=== PATIENT | male | born 1945 | race Caucasian/White ===

== ENCOUNTER 2024-03-12 11:42 | Inpatient (IN) | payer OTHER, SELFPAY ==
[2024-03-10] VITALS (9 sets, daily range): BP systolic 105–157; BP diastolic 64–95; BMI 22.6
--- NOTE | 2024-03-10 15:03 | ED.GENMED ---
History of Present Illness
General
Chief Complaint: Weakness
Time Seen by Provider: 03/10/24 14:44
History of Present Illness
History of Present Illness:
78-year-old male history of hypertension presenting with frequent falls over the past 6 months. Patient states that he has been worsening over the past 3 weeks, has had 4 falls in the past week. Patient states that in October 2023, he was running
full-court refereeing. Patient states he has been unable to run secondary to frequent falls. Patient denies striking his head or loss of consciousness. Patient reports last week when he fell he landed on the toilet injuring his mid back. Patient
denies numbness, weakness, tingling, visual changes, incontinence, fever, chills, chest pain or shortness of breath. Patient states that he has a neurology appointment in 2 days. Patient states that he was on amlodipine for hypertension but
switched 3 weeks ago secondary to lower extremity edema to losartan. Patient states he feels off balance, falls when trying to take his shoes off while standing. Family at bedside states pt will be standing when it appears that his feet get 'stuck'
causing him to fall over. Pt denies any dizziness or lightheadedness. Pt not on blood thinners.
Phy Exam
Physical Exam
Physical Exam:
General: Alert, no acute distress
Head: NCAT
Eyes: clear conjunctiva, PERRLA, EOMI
Neck: supple
Cardiac: regular rate and rhythm, no murmur
Lungs: clear to auscultation bilaterally. No wheezes, rales, or rhonchi. Speaking full unlabored sentences. No respiratory distress.
Abdomen: soft, nondistended nontender. No rebound or guarding.
MSK: no lower extremity edema bilaterally. No deformity. No cervical or lumbar midline tenderness to palpation. Lower thoracic midline tenderness to palpation
Skin: warm, dry
Neuro: Alert and oriented x3. Cranial nerves II through XII grossly intact no focal deficits. Normal finger-nose and [id number]. 5 out of 5 strength bilateral upper and lower extremities. No pronator drift bilateral upper and lower
extremities. Sensation intact throughout
Course
Orders/Labs/Results
Orders:
Orders
03/10/24 15:01
CT Cervical Spine W/o Iv Contr Urgent
Comment:
Reason For Exam: fall
CT Head W/o Iv Contrast Urgent
Comment:
Reason For Exam: frequent falls
CT Thoracic Spine W/o Iv Contr Urgent
Comment:
Reason For Exam: lower thoracic midline tenderness s/p fall
03/10/24 15:02
EKG [Electrocardiogram (*1)] Urgent
Reason for Study: Other
Other Reason for Exam: falls
EKG- Treatment ONCE
03/10/24 15:12
CBC/With Diff [Complete Blood Count/With Diff] Urgent
CMP [Comprehensive Metabolic Panel] Urgent
Lipase Urgent
Comment: ADD ON
03/10/24 15:53
US Abdomen Complete/Upper Urgent
Comment:
Reason For Exam: elevated lfts
03/10/24 15:58
Add On- LAB Urgent
Tests Added?: Lipase
03/10/24 17:02
UA Reflex to Culture [Urinalysis Reflex To Culture] Urgent
Date Specimen was Collected: 03/10/24
Time Specimen was Collected: 16:13
Abnormal Lab Results
03/10/24
15:12
RBC 4.03 L 10^6/uL
(4.70-6.10)
MCV 98.5 H fL
(80.0-94.0)
MCH 32.5 H pg
(27.0-31.0)
Absolute Lymphs (auto) 1.1 L 10^3/uL
(1.2-3.4)
Absolute Monos (auto) 0.7 H 10^3/uL
(0.1-0.6)
Lymphocytes % 14.9 L %
(20.5-51.1)
BUN 36 H mg/dl
(9-20)
Glucose 173 H mg/dl
(70-99)
AST 131 H U/L
(17-59)
ALT 92 H U/L
(0-50)
03/10/24 15:12
03/10/24 15:12
Vital Signs
Initial and Last Documented VS:
Initial Vital Signs
Temp Pulse Resp Pulse Ox
97.7 F 64 18 98
03/10/24 12:29 03/10/24 12:29 03/10/24 12:29 03/10/24 12:29
Last Documented Vital Signs
Temp Pulse Resp BP Pulse Ox
97.7 F 53 12 120/76 97
03/10/24 12:29 03/10/24 19:00 03/10/24 19:00 03/10/24 19:00 03/10/24 19:00
MDM/Problems Addressed
Differential Diagnosis Includes:
Anemia, electrolyte abnormality, UTI, intracranial hemorrhage, Parkinson's, normal pressure hydrocephalus
MDM/Problems Addressed:
Results reviewed. Hemoglobin 13.1. UA negative for UTI. Elevated AST and ALT. Abdominal ultrasound unremarkable. CT cervical/thoracic spine unremarkable. CT head unremarkable for Multiple small low-attenuation lesions in the caudate nuclei,
basal ganglia, and left thalamus, no acute hemorrhage. Attempted to ambulate patient in ER. Pt unsteady gait and needs assistance, concern for fall risk. Pt lives at home alone. Discussed results with pt at bedside and daughters on the phone who are
agreeable for admission. Discussed with hospitalist for admission
*Critical Care Note
Total Time (30-74mins, 75-104mins- exclusive of procedures): Not Applicable
ED Attending Note
-
Portions of this chart may have been created with voice recognition software.� Occasional wrong word or��sound alike� substitutions may have occurred due to the inherent limitations of voice recognition software.
Discharge Plan
Departure
Patient Disposition: Admit
Date of Disposition: 03/10/24
Time of Disposition: 19:35
Presentation/result/management discussed w/ accepting MD/DO: Hospitalist
Discharge Problem:
Ambulatory dysfunction
Prescriptions:
No Action
ketoconazole 2 % Shampoo
1 applic TOPICAL DAILY
trazodone 50 mg Tablet
50 mg PO HSPRN PRN (Reason: sleep)
acetaminophen [Tylenol Arthritis Pain] 650 mg Tablet Extended Release
650 mg PO Q8HPRN PRN (Reason: mild pain)
tamsulosin 0.4 mg Capsule
0.4 mg PO HS
aspirin 81 mg Tablet,Chewable
81 mg PO HS
valsartan 160 mg Tablet
160 mg PO DAILY
Referrals:
Pb Thorne DO [Family Provider] -
Interventions
Interventions:
*Risk Screen - Suicide Last Done: 03/10/24 12:29
*General Assessment Last Done: 03/10/24 12:29
*Neglect/Abuse Screening Last Done: 03/10/24 12:29
*ED COVID-19 Vaccine History Last Done: 03/10/24 12:29
ED- Cardiac Assessment Last Done: 03/10/24 15:15
ED- Neurological Assessment Last Done: 03/10/24 15:15
ED- Pulmonary Assessment Last Done: 03/10/24 15:15
Discharge Date and Time
Print Language: TOGOLESE
[2024-03-10 15:30] LABS: % Basophils 0.4 % (0-2); % Eosinophils 3.2 % (0-6); % Immature Granulocytes 0.4 % (0-0.5); % Lymphocytes 14.9 % (20.5-51.1); % Monocytes 9.3 % (1.7-9.3); % Neutrophils 71.8 % (42.2-75.2); Absolute Eosinophils 0.2 10^3/uL (0-0.7); Absolute Lymphocytes 1.1 10^3/uL (1.2-3.4); Absolute Monocytes 0.7 10^3/uL (0.1-0.6); Absolute Neutrophils 5.4 10^3/uL (1.4-6.5); Hematocrit 39.7 % (39.0-52.0); Hemoglobin 13.1 g/dL (13.0-18.0); Mean Corpuscular Hgb 32.5 pg (27.0-31.0); Mean Corpuscular Volume 98.5 fL (80.0-94.0); Mean Platelet Volume 9.2 fL (7.4-10.4); Nucleated Red Blood Cells % 0 % (-); Platelet Count 177 10^3/uL (130-400); Red Blood Cell Count 4.03 10^6/uL (4.70-6.10); Red Cell Dist. Width 12.4 % (11.5-14.5); White Blood Cell Count 7.5 10^3/uL (4.8-10.8)
[2024-03-10 15:49] LABS: ALT (SGPT) 92 U/L (0-50); AST (SGOT) 131 U/L (17-59); Albumin 3.9 g/dl (3.5-5.0); Alkaline Phosphatase 77 U/L (38-126); Blood Urea Nitrogen 36 mg/dl (9-20); Calcium 9.2 mg/dl (8.4-10.2); Carbon Dioxide 29 mmol/L (22-30); Chloride 105 mmol/L (98-107); Glucose 173 mg/dl (70-99); Potassium 4.1 mmol/L (3.5-5.1); Sodium 139 mmol/L (135-145); Total Bilirubin 0.5 mg/dl (0.2-1.3); Total Protein 6.3 g/dl (6.3-8.2); eGFR > 60.00
[2024-03-10 16:47] LABS: Lipase 162 U/L (23-300)
[2024-03-10 17:21] LABS: Urine Albumin Negative (Neg - Trace); Urine Bilirubin Negative (Negative); Urine Character Clear (Clear); Urine Color Yellow; Urine Glucose Negative (Negative); Urine Ketone Negative (Negative); Urine Leukocyte Negative (Negative); Urine Nitrite Negative (Negative); Urine Occult Blood Negative (Negative); Urine Specific Gravity 1.025 (<1.030); Urine Urobilinogen Negative (Neg - 1+)
--- NOTE | 2024-03-10 19:38 | HPS.HSE ---
Family Physician
-
Family Physician: Pb Thorne
Chief Complaint
-
fall
History of Present Illness
78-year-old male with PMH for HTN, BPH presenting with frequent falls over the past three weeks. he is been feeling off balance for 6 months. his legs are weaker and just gives out on him. last he fell four times. Patient denies striking his head
or loss of consciousness. Patient reports last week when he fell he landed on the toilet injuring his mid back. Patient denies numbness, weakness, tingling, visual changes, incontinence, fever, chills, chest pain or shortness of breath. Pt denies
any dizziness or lightheadedness. denied abdominal pain,n,v,d. denied dysuria or hematuria. he has lost 10 lbs in few weeks.
Radiological tests were negative for acute fracture
head CT with Multiple small low-attenuation lesions in the caudate nuclei, basal ganglia, and left thalamus. Diagnostic possibilities are (1) ischemic lacunar infarcts or (2) dilated perivascular spaces
admitting for further management.
Medical History
Past Medical History
Past Medical History: Reports None
Past Surgical History: Reports None
Social History
Tobacco: Non-smoker
Alcohol: Occasional
Drug: None
Personal: Single
Living: Alone
Family History
Family History: Not pertinent
Allergies / Home Medications
Allergies reflects when Allergies were last updated in [facility].
Home Medications with original date entered in [facility]
Allergy/Medication List:
Allergies
Allergy/AdvReac Type Severity Reaction Status Date / Time
No Known Allergies Allergy Unverified 03/10/24 12:32
Home Medications
acetaminophen 650 mg tablet,extended release (Tylenol Arthritis Pain) 650 mg PO Q8HPRN PRN mild pain 03/10/24
aspirin 81 mg chewable tablet 81 mg PO HS 03/10/24
ketoconazole 2 % shampoo 1 applic topical DAILY 03/10/24
tamsulosin 0.4 mg capsule 0.4 mg PO HS 03/10/24
trazodone 50 mg tablet 50 mg PO HSPRN PRN sleep 03/10/24
valsartan 160 mg tablet 160 mg PO DAILY 03/10/24
Review of Systems
-
Constitutional: Reports No Symptoms
EENT: Reports No Symptoms
Respiratory: Reports No Symptoms
Cardiac: Reports No Symptoms
Abdomen/GI: Reports No Symptoms
: Reports No Symptoms
Musculoskeletal: Reports No Symptoms
Skin: Reports No Symptoms
Neurological: Reports Other (off balance, fall)
Endocrine: Reports No Symptoms
Hematologic/Lymphatic: Reports No Symptoms
Psych: Reports No Symptoms
Physical Exam
Vital Signs
Vital Signs
Temp Pulse Resp BP Pulse Ox
97.7 F 53 12 120/76 97
03/10/24 12:29 03/10/24 19:00 03/10/24 19:00 03/10/24 19:00 03/10/24 19:00
Physical Exam
General: Well Developed, Well Nourished and No Apparent Distress
HEENT: NormoCephalic, Moist mucous membranes and Atraumatic
Respiratory: Clear
Cardiac: S1/S2 and Regular Rhythm; No Murmur or Rub
GI: Soft, Non Tender, Non Distended and Normal Bowel Sounds; No Organomegaly
Rectal: Deferred by Provider
Musculoskeletal: No Clubbing, No Cyanosis and No Edema
Skin: No Rash
Neuro: AO x 3 and Nonfocal/grossly intact
Psych: Calm
Laboratory Results
-
03/10/24 15:12
03/10/24 15:12
Laboratory Results
Total Bilirubin 0.5 mg/dl (0.2-1.3) 03/10/24 15:12
AST 131 U/L (17-59) H 03/10/24 15:12
ALT 92 U/L (0-50) H 03/10/24 15:12
Alkaline Phosphatase 77 U/L (38-126) 03/10/24 15:12
Lipase Cancelled 03/10/24 15:53
Data Reviewed
-
CT Scan: Report Reviewed by me
Ultrasound: Report Reviewed by me
Lab Data: Labs Reviewed by me
Impression/Plan
-
#ambulatory dysfunction
-PT/OT consulted
-UA negative
-thoracic spine CT with No acute fracture or subluxation.
-head CT with Multiple small low-attenuation lesions in the caudate nuclei, basal ganglia, and left thalamus. Diagnostic possibilities are (1) ischemic lacunar infarcts or (2) dilated perivascular spaces. Mild diffuse cerebral and cerebellar volume
loss.No CT evidence for acute intracranial hemorrhage.
-cervical spine CT with No acute fracture or subluxation.
-will obtain MRI, orthostatics
-will obtain TSH, B12,ESR,RPR
#Bradycardia
-EKG with sinus niall with sinus arrhythmia with 1se degree A V Block, right bundle branch block.
-ctm in tele
-HR 50-60's
#transaminitis
-AST 131,ALT 92
-US abdomen with Essentially unremarkable limited abdominal ultrasound, as detailed above.
-continue to trend
#BPH
-Flomax
#essential htn
-valsartan continued with hold parameter
#DVT prophylaxis
-Lovenox
#CODE status
-full code
--- NOTE | 2024-03-10 20:06 | W.PN.UPDATE ---
Update Note
Progress Note Update
Patient seen in conjunction with PHOTOVOLTAIC PANEL INSTALLER. I agree with the final history and physical as well as assessment and plan.
Briefly this is a 78-year-old with past medical history significant for hypertension, BPH presenting to the emergency department with multiple recent falls. Patient denies any syncopal events. She denies feeling dizzy or lightheaded. He denies
vertigo. He denies any changes in his vision. He reports a history of intermittent ankle swelling and some numbness or tingling in the feet bilaterally. He denies any history of chronic back pain or back surgery. He denies incontinence of the
bowel or bladder. He denies any weakness. Sensation is otherwise intact. He denies any headache. Patient given example of a fall where he was walking down the street and he felt like something pulled him forward. This appears to be gait
abnormality. He has no recent cough cold flulike symptoms. He reports that his doctors have been adjusting his medications to balance is falls. He does lives at home by himself. Denies etoh.
On my exam he was alert and oriented x 3 and in no acute distress. No focal neurological deficits on exam
In the emergency department he was hemodynamically stable with a blood pressure of 120/76 pulse of 50 and oxygen saturation of 97%. ECG shows sinus bradycardia in the 50s with a right bundle branch block. No priors to compare. CBC was
unremarkable. BUN was elevated at 36 otherwise electrolytes and creatinine were normal. AST was slightly elevated at 131 ALT 92. UA was unremarkable. His CT head, C-spine and thoracic spine where unremarkable for any acute changes. Abdominal
ultrasound was negative. There was cerebellar and cerebral volume loss on the CT of the head with multiple small low-attenuation lesions in the caudate nuclei, basal ganglia, and left thalamus.
Suspect old ischemic CVA resulting in ataxia, NPH, tabes dorsalis or ambulatory dysfunction.
A&P
- admit to telemetry, eval rate x 24 hours
- orthostatic vs
- check mri brain, tsh, b12, esr and rpr
- PT OT evaluation
- continue aspirin 81, valsartan 160
- continue tamsulosin
DVT PPX - lovenox sq
Code status - Full Code
[2024-03-10] MEDS: LOW STRENGTH ASPIRIN 81 MG PO (23:02)
[2024-03-10] MEDS: FLOMAX 0.4 MG PO (23:03)
--- NOTE | 2024-03-10 23:20 | PTCARENOTE ---
Pt arrived to room 416-01. Pt did stand & pivot from stretcher to bed. Pt AAOx3, VSS. Bed alarm placed. Pt oriented to room, call lynn placed within reach.
[2024-03-11] VITALS (8 sets, daily range): BP systolic 105–154; BP diastolic 63–87; PULSE 52–76; O2SAT 98
[2024-03-11] MEDS: TYLENOL 650 MG PO (00:58)
[2024-03-11 08:47] LABS: Erythrocyte Sed Rate 16 mm/hour (0-20)
--- NOTE | 2024-03-11 08:49 | PTOTSP ---
Dysphagia Evaluation
Oral/pharyngeal swallow suspected to be grossly WFL. No s/s of aspiration.
Signs concerning for at least mild dysphonia (decreased breath support, low volume, hoarse vocal quality, vocal tremor), new for past 2 months per patient report. Consider outpatient ENT consult and outpatient [facility] for voice evaluation/therapy.
Recommend:
1. Regular, Thin liquids
2. Medications as best tolerated
3. General aspiration precautions
4. Will follow up to continue cognitive linguistic testing as able/appropriate.
5. Consider outpatient ENT consult and outpatient [facility] for voice evaluation/therapy.
[2024-03-11] MEDS: DIOVAN 160 MG PO (08:55)
[2024-03-11 08:57] LABS: TSH Reflex To Free T4 2.03 uIU/ml (0.47-4.68)
--- NOTE | 2024-03-11 09:12 | CON.NEURO ---
Consultation
Order
Date of Consultation: 03/11/24
Requesting Provider: Shana Velasco MD
Reason for Consult: ambulatory dysfunction
Neurology Consultation Note.
HPI: This is a 78-year-old left-handed man who presented to [facility] on 03/10/2024 with frequent falls. Mr. Calvert endorses progressive imbalance as well as generalized bradykinesia's along with micrographia over the last year.
He has had several falls with no loss of consciousness or head trauma over the last 6 months.
ER VS: 115/71, 64, afebrile.
EKG: normal sinus rhythm, VR 58, QTc Int : 433 ms
PDMP: none
Labs: Glucose�173, normal WBCs, sodium, creatinine, Ca, AST�131, ALT�92
CT head wo contrast-multiple small low-attenuation lesions in the caudate nuclei, basal ganglia, and left thalamus. D
CT C spine-mild to moderate multilevel degenerative disc disease, however worst at C4-5 and C5-6.
PMH: HTN, BPH
PSH: none
SH: lives with daughter, retired truck company owner manager, non-smoker, no history excessive alcohol use; independent in ADLs.
FH: Father�lung cancer,
All:NKDA
ROS:Constitutional: Negative. Negative for chills, fever and unexpected weight change.
HENT: Positive for hearing impairment.
Eyes: Negative. Negative for photophobia, pain and visual disturbance.
Respiratory: Negative for cough, choking and shortness of breath.
Cardiovascular: Negative for chest pain, palpitations and leg swelling.
Gastrointestinal: Positive for sialorrhea
Endocrine: Negative. Negative for cold intolerance.
Genitourinary: Positive for urinary urgency.
Musculoskeletal: Negative for back pain, neck pain and neck stiffness.
Skin: Negative for rash.
Allergic/Immunologic: Negative. Negative for immunocompromised state.
Neurological: Positive for imbalance, urge to move legs in the evening, change in handwriting, bradykinesia's
Psychiatric/Behavioral: Negative for hallucinations.
General: Well developed. In no acute distress. Masked facies
Cardio: Regular rate and rhythm without murmur. Extremities are without cyanosis or edema.
Neuro:
Mental Status: Alert, oriented to person, place, and date. Normal attention and recall. Good fund of knowledge. Follows complex requests across the midline. Comprehension, naming, and repetition intact.
Cranial Nerves: . Pupils are equally round and reactive to light. EOMs full except for limited upgaze. visual hicks full to confrontation. No ptosis. No nystagmus. V1-V3 intact to light touch and pinprick bilaterally, symmetric. Face
symmetric. Poor hearing AU. The palate elevated well. SCMs and traps 5/5. Tongue midline. No dysarthria.
Motor: Increased motor tone with cogwheeling on the right. No pronator or arm drift. Strength 5/5 throughout. No clonus.
Reflexes: Bilateral grasp. Limited exam due to positioning.
Sensory: Reduced vibration at the left great and right toes.
Coordination: No dysmetria or tremor.
Gait: deferred
Assessment and Plan:
I. R hemiparkinsonism Differential diagnosis includes secondary parkinsonism(vascular, structural (hydrocephalus, chronic subdural hematoma, tumor), metabolic(hypoparathyroidism and pseudohypoparathyroidism, chronic liver failure, extrapontine
myelinolysis) , neurodegenerative(IPD, CBD, LBD), less likely infections(neurosyphilis).
II. Bilateral basal ganglia hypodensities.
III. RLS
-Fall precautions
-Please obtain orthostatic vital signs
-Brain MRI wo trupti
-Check PTH, ferritin, iron, transferrin.
-Start Mirapex 0.125 mg once daily 2 to 3 hours before bedtime. Daily dose may be increased based on response and tolerability to 0.25 mg after 4 to 7 days.
-Avoid dopamine blocking agents
-OP Amelia scan to look for reduced dopamine transporter uptake in basal ganglia based on brain MRI results.
I personally reviewed all radiology and labs along with past medical records pertinent to current medical problems. Total time spent in patient care is 60 minutes.
Thank you for allowing us to participate in the care of this patient. We will continue to follow. Please do not hesitate to contact us with any questions or concerns.
Subjective/Objective
Subjective Data
Date of Service: March 11, 2024
Objective Data
Vital Signs
Temp Pulse Resp BP Pulse Ox
36.6 C 52 18 129/71 98
03/11/24 07:00 03/11/24 07:00 03/11/24 07:00 03/11/24 07:00 03/11/24 07:00
Lab Results
03/10/24 15:12
03/10/24 15:12
Sodium 139 mmol/L (135-145) 03/10/24 15:12
Potassium 4.1 mmol/L (3.5-5.1) 03/10/24 15:12
BUN 36 mg/dl (9-20) H 03/10/24 15:12
Glucose 173 mg/dl (70-99) H 03/10/24 15:12
Calcium 9.2 mg/dl (8.4-10.2) 03/10/24 15:12
Patient Allergies
No Known Allergies Allergy (Unverified 03/10/24 12:32)
Medications
-
Active Medications
Generic Name Dose Route Start Last Admin
Trade Name Freq PRN Reason Stop Dose Admin
Acetaminophen 650 mg 03/10/24 22:40 03/11/24 00:58
Acetaminophen 325 Mg Tablet PO 04/07/24 22:39 650 mg
Q4HPRN PRN Administration
mild pain/PIRES/temp> 100.4F
Aspirin 81 mg 03/10/24 22:40 03/10/24 23:02
Aspirin 81 Mg Chewable Tablet PO 04/07/24 22:39 81 mg
HS RUBY Administration
Bisacodyl 10 mg 03/10/24 22:40
Bisacodyl 10 Mg Rectal Suppository RECTAL 04/07/24 22:39
[id number] PRN
constipation
Enoxaparin Sodium 40 mg 03/11/24 18:00
Enoxaparin Sodium 40 Mg/0.4 Ml Syringe SC 04/08/24 17:59
QPM RUBY
Polyethylene Glycol 17 grams 03/10/24 22:40
Polyethylene Glycol Powder 17 Grams Packet PO 04/07/24 22:39
DAILYPRN PRN
constipation
Senna/Docusate Sodium 1 tablet 03/10/24 22:40
Docusate W/Senna (Joanne-Colace) Tablet PO 04/07/24 22:39
BIDPRN PRN
constipation
Sodium Chloride 0 flush 03/10/24 23:00
Sodium Chloride 0.9% (Flush) Syringe IV 04/07/24 22:59
PER PROTOCOL RUBY
Tamsulosin HCl 0.4 mg 03/10/24 22:40 03/10/24 23:03
Tamsulosin 0.4 Mg Capsule PO 04/07/24 22:39 0.4 mg
HS RUBY Administration
Trazodone HCl 50 mg 03/10/24 22:40
Trazodone 50 Mg Tablet PO 04/07/24 22:39
HSPRN PRN
sleep
Valsartan 160 mg 03/11/24 08:00 03/11/24 08:55
Valsartan 160 Mg Tablet PO 04/08/24 07:59 160 mg
DAILY RUBY Administration
Home Medications
�Medication �Instructions �Recorded
acetaminophen 650 mg 650 mg PO Q8HPRN PRN mild pain 03/10/24
tablet,extended release (Tylenol
Arthritis Pain)
aspirin 81 mg chewable tablet 81 mg PO HS 03/10/24
ketoconazole 2 % shampoo 1 applic topical DAILY 03/10/24
tamsulosin 0.4 mg capsule 0.4 mg PO HS 03/10/24
trazodone 50 mg tablet 50 mg PO HSPRN PRN sleep 03/10/24
valsartan 160 mg tablet 160 mg PO DAILY 03/10/24
Vital Signs and Labs
-
Vital Signs and Labs:
Vital Signs
Temp Pulse Resp BP Pulse Ox
36.4 C 70 18 115/68 98
03/11/24 11:00 03/11/24 11:00 03/11/24 11:00 03/11/24 11:00 03/11/24 11:00
Lab Results
03/10/24 15:12
03/10/24 15:12
Sodium 139 mmol/L (135-145) 03/10/24 15:12
Potassium 4.1 mmol/L (3.5-5.1) 03/10/24 15:12
BUN 36 mg/dl (9-20) H 03/10/24 15:12
Glucose 173 mg/dl (70-99) H 03/10/24 15:12
Calcium 9.2 mg/dl (8.4-10.2) 03/10/24 15:12
Vitamin B12 314 pg/ml (239-931) 03/11/24 06:34
Medications
-
Medications:
Generic Name Dose Route Start Last Admin
Trade Name Freq PRN Reason Stop Dose Admin
Acetaminophen 650 mg 03/10/24 22:40 03/11/24 00:58
Acetaminophen 325 Mg Tablet PO 04/07/24 22:39 650 mg
Q4HPRN PRN Administration
mild pain/PIRES/temp> 100.4F
Aspirin 81 mg 03/10/24 22:40 03/10/24 23:02
Aspirin 81 Mg Chewable Tablet PO 04/07/24 22:39 81 mg
HS RUBY Administration
Bisacodyl 10 mg 03/10/24 22:40
Bisacodyl 10 Mg Rectal Suppository RECTAL 04/07/24 22:39
[id number] PRN
constipation
Cyanocobalamin 1,000 mcg 03/11/24 13:00 03/11/24 12:38
Cyanocobalamin 1,000 Mcg Tablet PO 04/08/24 12:59 1,000 mcg
DAILY RUBY Administration
Enoxaparin Sodium 40 mg 03/11/24 18:00
Enoxaparin Sodium 40 Mg/0.4 Ml Syringe SC 04/08/24 17:59
QPM RUBY
Polyethylene Glycol 17 grams 03/10/24 22:40
Polyethylene Glycol Powder 17 Grams Packet PO 04/07/24 22:39
DAILYPRN PRN
constipation
Senna/Docusate Sodium 1 tablet 03/10/24 22:40
Docusate W/Senna (Joanne-Colace) Tablet PO 04/07/24 22:39
BIDPRN PRN
constipation
Sodium Chloride 0 flush 03/10/24 23:00
Sodium Chloride 0.9% (Flush) Syringe IV 04/07/24 22:59
PER PROTOCOL RUBY
Tamsulosin HCl 0.4 mg 03/10/24 22:40 03/10/24 23:03
Tamsulosin 0.4 Mg Capsule PO 04/07/24 22:39 0.4 mg
HS RUBY Administration
Trazodone HCl 50 mg 03/10/24 22:40
Trazodone 50 Mg Tablet PO 04/07/24 22:39
HSPRN PRN
sleep
Valsartan 160 mg 03/11/24 08:00 03/11/24 08:55
Valsartan 160 Mg Tablet PO 04/08/24 07:59 160 mg
DAILY RUBY Administration
Home Medications
-
Home Medications
acetaminophen 650 mg tablet,extended release (Tylenol Arthritis Pain) 650 mg PO Q8HPRN PRN mild pain 03/10/24
aspirin 81 mg chewable tablet 81 mg PO HS 03/10/24
ketoconazole 2 % shampoo 1 applic topical DAILY 03/10/24
tamsulosin 0.4 mg capsule 0.4 mg PO HS 03/10/24
trazodone 50 mg tablet 50 mg PO HSPRN PRN sleep 03/10/24
valsartan 160 mg tablet 160 mg PO DAILY 03/10/24
[2024-03-11 09:16] LABS: Vitamin B12 314 pg/ml (239-931)
--- NOTE | 2024-03-11 12:00 | W.PN.HOSP.TC ---
Today's Communication/Plan
-
see A/P
Assessment / Plan
Assessment / Plan
HPI: 78-year-old with past medical history significant for hypertension, BPH; p/w multiple recent falls. Patient denies any syncopal events. He denies feeling dizzy or lightheaded. He denies vertigo. He denies any changes in his vision.
He reports a history of intermittent ankle swelling and some numbness or tingling in the feet bilaterally. He denies any history of chronic back pain or back surgery. He denies incontinence of the bowel or bladder. He denies any weakness.
Sensation is otherwise intact. He denies any headache. Patient given example of a fall where he was walking down the street and he felt like something pulled him forward. This appears to be gait abnormality.
He reports that his doctors have been adjusting his medications to balance his falls. He does lives at home by himself. Denies etoh.
A/P:
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
hemodynamically stable
CT head noted Multiple small low-attenuation lesions in the caudate nuclei, basal ganglia, and left thalamus. Diagnostic possibilities are (1) ischemic lacunar infarcts or (2) dilated perivascular spaces.
CT cervical and thoracic spine: No acute fracture or subluxation.
Check MRI brain
Orthostatic VS acceptable
UA clean, TSH WNL at 2.03
Vit B 12 level noted low at 300, start B12 supplement
RPR was ordered from admission, follow up
No event on tele overnight
PT OT evaluation
# Transaminitis, mild
Abd US unremarkable
Follow LFT
Follow hepatitis panel
# Bradycardia
EKG with sinus niall with sinus arrhythmia with 1se degree A V Block, right bundle branch block.
Monitor on telel
# BPH
Flomax
# Essential HTN
Cont valsartan with hold parameter
DVT PPX - lovenox sq
Code status - Full Code
DW Neuro
DW daughter Khushi on the phone
total time spent 51 min
Anticipated Discharge: 24 - 48 hours
Subjective/Interval History
-
Date of Service: March 11, 2024
Objective Data
-
Vital Signs:
Vital Signs
Temp Pulse Resp BP Pulse Ox
36.4 C 70 18 115/68 98
03/11/24 11:00 03/11/24 11:00 03/11/24 11:00 03/11/24 11:00 03/11/24 11:00
I&O
03/10/24 03/11/24 03/12/24
06:59 06:59 06:59
Intake Total 480 / 480
Output Total 300 / 300
Balance 180 / 180
Review of Systems
-
Musculoskeletal: Reports Other (frequent falls )
Physical Exam
-
General: Well Developed, Well Nourished, No Apparent Distress, Comfortable and Conversant (slow speech); Negative Respiratory Distress
HEENT: Normocephalic, Atraumatic, Nose Appears Normal and Ears Appear Normal; Negative Oxygen
Respiratory: Clear to Auscultation and Non Labored Respirations; Negative Accessory Resp Muscle Use
Cardiac: Regular Rhythm and S1/S2
GI: Soft, Nontender, Nondistended and Normal Bowel Sounds
Skin: Warm and Dry
Neuro: Awake, Alert, Oriented and Other (flattened facial expression, slow movement )
Psych: Calm and Intact Judgement/Insight
Data Reviewed
-
CT Scan: Report Reviewed by me
Labs: Labs Reviewed by me
[2024-03-11] MEDS: VITAMIN B-12 1000 MCG PO (12:38)
--- NOTE | 2024-03-11 13:33 | CM ---
Addendum entered by Maria M Souza 03/11/24 13:43:
CM discussed grief counseling as pt informed of recent loss of his . Pt states he has been managing and will let CM know if he is interested in additional support at d/c.
Pt currently admitted in OBS status. DARNELL form reviewed, pt given copy. Copy placed in chart
Original Note:
Spoke w/ pt bedside. Initial assessment completed.
Pt lives alone in a 2STH- 2 steps to enter the home. Pt's recently 3 months ago after 40+ years of marriage.
Pt is independent, denies DME use for ambulating or daily functioning
Denies SNF/VN/PT hx
Address, point of contact and insurances verified
PCP: Dr. Pb Thorne
Pharmacy: [facility]
Discussed in person w/ PT regarding needs for rehab. Pt is being recommended for acute rehab at this time
PT states pt appears unaware of his deficits and his previous falls. Per PT, pt wants to return coaching basketball and is unsure if he'll agree to rehab.
CM to further discuss w/ pt and follow up w/ daughter.
Plan: PT/OT currently recommending acute rehab
CM will cont to follow for d/c planning
[2024-03-11] MEDS: MIRAPEX 0.125 MG PO (14:20)
[2024-03-11 14:50] LABS: Calcium 9.4 mg/dl (8.4-10.2); Iron 47 ug/dl (49-181)
[2024-03-11 14:59] LABS: Percent Saturation 21 % (20-50); Total Iron Binding Capacity 217 ug/dl (261-462)
[2024-03-11 15:27] LABS: Vitamin B12 291 pg/ml (239-931)
[2024-03-11] MEDS: LOVENOX 40 MG SC (17:07)
[2024-03-11] MEDS: LOW STRENGTH ASPIRIN 81 MG PO (23:10)
[2024-03-11] MEDS: DESYREL 50 MG PO (23:10)
[2024-03-11] MEDS: FLOMAX 0.4 MG PO (23:10)
[2024-03-12 03:30] VITALS: BP 119/66
[2024-03-12 07:00] VITALS: BP 125/70
[2024-03-12] MEDS: VITAMIN B-12 1000 MCG PO (08:05)
[2024-03-12] MEDS: DIOVAN 160 MG PO (08:05)
[2024-03-12] MEDS: MIRAPEX 0.125 MG PO (08:05)
[2024-03-12 08:07] LABS: ALT (SGPT) 100 U/L (0-50); AST (SGOT) 92 U/L (17-59); Albumin 3.8 g/dl (3.5-5.0); Alkaline Phosphatase 79 U/L (38-126); Blood Urea Nitrogen 28 mg/dl (9-20); Calcium 9.5 mg/dl (8.4-10.2); Carbon Dioxide 26 mmol/L (22-30); Chloride 105 mmol/L (98-107); Estimated Creatinine Clearance 76 ml/min; Glucose 105 mg/dl (70-99); Magnesium 2.2 mg/dl (1.6-2.3); Potassium 4.5 mmol/L (3.5-5.1); Sodium 138 mmol/L (135-145); Total Bilirubin 1.1 mg/dl (0.2-1.3); Total Protein 6.4 g/dl (6.3-8.2); eGFR > 60.00
--- NOTE | 2024-03-12 10:40 | W.PN.HOSP.TC ---
Today's Communication/Plan
-
see A/P
Assessment / Plan
Assessment / Plan
HPI: 78-year-old with past medical history significant for hypertension, BPH; p/w multiple recent falls. Patient denies any syncopal events. He denies feeling dizzy or lightheaded. He denies vertigo. He denies any changes in his vision.
He reports a history of intermittent ankle swelling and some numbness or tingling in the feet bilaterally. He denies any history of chronic back pain or back surgery. He denies incontinence of the bowel or bladder. He denies any weakness.
Sensation is otherwise intact. He denies any headache. Patient given example of a fall where he was walking down the street and he felt like something pulled him forward. This appears to be gait abnormality.
He reports that his doctors have been adjusting his medications to balance his falls. He does lives at home by himself. Denies etoh.
A/P:
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
hemodynamically stable
CT head noted Multiple small low-attenuation lesions in the caudate nuclei, basal ganglia, and left thalamus. Diagnostic possibilities are (1) ischemic lacunar infarcts or (2) dilated perivascular spaces.
CT cervical and thoracic spine: No acute fracture or subluxation.
Follow MRI brain
Orthostatic VS acceptable
UA clean, TSH WNL at 2.03
Vit B 12 level noted low at 300, started B12 supplement
RPR was ordered from admission, follow up
No event on tele overnight
PT OT evaluation
# Transaminitis, mild
Abd US unremarkable
Follow LFT
Follow hepatitis panel
# Bradycardia
EKG with sinus niall with sinus arrhythmia with 1se degree A V Block, right bundle branch block.
Monitor on telel
# BPH
Flomax
# Essential HTN
Cont valsartan with hold parameter
DVT PPX - lovenox sq
Code status - Full Code
Dispo: PT OT eval
Anticipated Discharge: 24 - 48 hours
Subjective/Interval History
-
Date of Service: March 12, 2024
Objective Data
-
Labs:
Laboratory Results
03/12/24
06:37
Sodium 138
Potassium 4.5
Chloride 105
Carbon Dioxide 26
BUN 28 H
Creatinine 0.8
Glucose 105 H
Calcium 9.5
Total Bilirubin 1.1
AST 92 H
ALT 100 H
Alkaline Phosphatase 79
Vital Signs:
Vital Signs
Temp Pulse Resp BP Pulse Ox
36.2 C 64 18 125/70 98
03/12/24 07:00 03/12/24 07:00 03/12/24 07:00 03/12/24 07:00 03/12/24 07:00
I&O
03/11/24 03/12/24 03/13/24
06:59 06:59 06:59
Intake Total 480 / 480 760 / 760
Output Total 300 / 300 600 / 600
Balance 180 / 180 160 / 160
Review of Systems
-
Musculoskeletal: Reports Other (frequent falls )
Physical Exam
-
General: Well Developed, Well Nourished, No Apparent Distress, Comfortable, Conversant (slow soft speech) and Appears Chronically Ill; Negative Respiratory Distress
HEENT: Normocephalic, Atraumatic, Nose Appears Normal and Ears Appear Normal; Negative Oxygen
Respiratory: Clear to Auscultation and Non Labored Respirations; Negative Accessory Resp Muscle Use
Cardiac: Regular Rhythm and S1/S2
GI: Soft, Nontender, Nondistended and Normal Bowel Sounds
Skin: Warm and Dry
Neuro: Awake, Alert, Oriented and Other (flattened facial expression, slow movement )
Psych: Calm and Intact Judgement/Insight
Data Reviewed
-
CT Scan: Report Reviewed by me
Labs: Labs Reviewed by me
[2024-03-12 11:00] VITALS: BP 99/53
[2024-03-12] MEDS: NSS 500 IV ×2 (11:13→14:06)
--- NOTE | 2024-03-12 11:49 | PTOTSP ---
LEAD SOFTWARE TEST ENGINEER Evaluation
Patient with at least mild dysphonia. Cognitive screener abnormal (03/30, adjusted MOCA 8.1) and concerning for deficits with attention, memory, abstraction, and orientation. Possible factors impacting included recent low blood pressure.
Continued assessment at the acute care level.
Recommend:
1. Acute LEAD SOFTWARE TEST ENGINEER follow up for further repeat cognitive linguistic testing.
2. Outpatient ENT consult and voice evaluation with LEAD SOFTWARE TEST ENGINEER
--- NOTE | 2024-03-12 12:39 | W.PN.NEURO.1 ---
Today's Communication / Plan
-
.
Subjective/Objective
Subjective Data
Date of Service: March 12, 2024
Neurology Follow Up Note.
Mr. Calvert reports significant improvement in urge to move his legs in the evening following Mirapex initiation.
Brain MRI showed no acute infarcts and chronic multiple basal ganglia Virchow-Cole spaces.
Ferritin�271, B12�291.
PMH: HTN, BPH, parkinsonism
PSH: none
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
FH: Father�lung cancer,
All:NKDA
ROS:Constitutional: Negative. Negative for chills, fever and unexpected weight change.
HENT: Positive for hearing impairment.
Eyes: Negative. Negative for photophobia, pain and visual disturbance.
Respiratory: Negative for cough, choking and shortness of breath.
Cardiovascular: Negative for chest pain, palpitations and leg swelling.
Gastrointestinal: Positive for sialorrhea
Endocrine: Negative. Negative for cold intolerance.
Genitourinary: Positive for urinary urgency.
Musculoskeletal: Negative for back pain, neck pain and neck stiffness.
Skin: Negative for rash.
Allergic/Immunologic: Negative. Negative for immunocompromised state.
Neurological: Positive for imbalance, urge to move legs in the evening, change in handwriting, bradykinesia's
Psychiatric/Behavioral: Negative for hallucinations.
General: Well developed. In no acute distress. Masked facies
Cardio: Regular rate and rhythm without murmur. Extremities are without cyanosis or edema.
Neuro:
Mental Status: Alert, oriented to person, place, and date. Normal attention and recall. Good fund of knowledge. Follows complex requests across the midline. Comprehension, naming, and repetition intact.
Cranial Nerves: . Pupils are equally round and reactive to light. EOMs full except for limited upgaze. visual hicks full to confrontation. No ptosis. No nystagmus. V1-V3 intact to light touch and pinprick bilaterally, symmetric. Face
symmetric. Poor hearing AU. The palate elevated well. SCMs and traps 5/5. Tongue midline. No dysarthria.
Motor: Increased motor tone with cogwheeling on the right. No pronator or arm drift. Strength 5/5 throughout. No clonus.
Reflexes: Bilateral grasp. Limited exam due to positioning.
Sensory: Reduced vibration at the left great and right toes.
Coordination: No dysmetria or tremor.
Gait: deferred
Assessment and Plan:
I. R hemiparkinsonism
II. Bilateral basal ganglia Virchow-Cole spaces
III. RLS.
-Fall precautions
-Continue Mirapex 0.125 mg once daily 2 to 3 hours before bedtime. Daily dose may be increased based on tolerability to 0.25 mg after 4 to 7 days.
-Avoid dopamine blocking agents
-OP Amelia scan
-PT
-folate, MMA, HC, start PO cyanocobalamin
-OP neurology follow up in 1-2 weeks
I personally reviewed all radiology and labs along with past medical records pertinent to current medical problems. Total time spent in patient care is 35 minutes.
Thank you for allowing us to participate in the care of this patient. Please do not hesitate to contact us with any questions or concerns
Objective Data
Vital Signs
Temp Pulse Resp BP Pulse Ox
36.4 C 63 18 99/53 98
03/12/24 11:00 03/12/24 11:00 03/12/24 11:00 03/12/24 11:00 03/12/24 11:00
Lab Results
03/10/24 15:12
03/12/24 06:37
Sodium 138 mmol/L (135-145) 03/12/24 06:37
Potassium 4.5 mmol/L (3.5-5.1) 03/12/24 06:37
BUN 28 mg/dl (9-20) H 03/12/24 06:37
Glucose 105 mg/dl (70-99) H 03/12/24 06:37
Calcium 9.5 mg/dl (8.4-10.2) 03/12/24 06:37
Vitamin B12 291 pg/ml (026-429) 03/11/24 13:53
Patient Allergies
No Known Allergies Allergy (Unverified 03/10/24 12:32)
Vital Signs and Labs
-
Vital Signs and Labs:
Vital Signs
Temp Pulse Resp BP Pulse Ox
36.4 C 63 18 99/53 98
03/12/24 11:00 03/12/24 11:00 03/12/24 11:00 03/12/24 11:00 03/12/24 11:00
Lab Results
03/10/24 15:12
03/12/24 06:37
Sodium 138 mmol/L (135-145) 03/12/24 06:37
Potassium 4.5 mmol/L (3.5-5.1) 03/12/24 06:37
BUN 28 mg/dl (9-20) H 03/12/24 06:37
Glucose 105 mg/dl (70-99) H 03/12/24 06:37
Calcium 9.5 mg/dl (8.4-10.2) 03/12/24 06:37
Vitamin B12 291 pg/ml (260-752) 03/11/24 13:53
Medications
-
Medications:
Generic Name Dose Route Start Last Admin
Trade Name Freq PRN Reason Stop Dose Admin
Acetaminophen 650 mg 03/10/24 22:40 03/11/24 00:58
Acetaminophen 325 Mg Tablet PO 04/07/24 22:39 650 mg
Q4HPRN PRN Administration
mild pain/PIRES/temp> 100.4F
Aspirin 81 mg 03/10/24 22:40 12/11/24 23:10
Aspirin 81 Mg Chewable Tablet PO 04/07/24 22:39 81 mg
HS RUBY Administration
Bisacodyl 10 mg 03/10/24 22:40
Bisacodyl 10 Mg Rectal Suppository RECTAL 04/07/24 22:39
[id number] PRN
constipation
Cyanocobalamin 1,000 mcg 03/11/24 13:00 03/12/24 08:05
Cyanocobalamin 1,000 Mcg Tablet PO 04/08/24 12:59 1,000 mcg
DAILY RUBY Administration
Enoxaparin Sodium 40 mg 03/11/24 18:00 03/11/24 17:07
Enoxaparin Sodium 40 Mg/0.4 Ml Syringe SC 04/08/24 17:59 40 mg
QPM RUBY Administration
Polyethylene Glycol 17 grams 03/10/24 22:40
Polyethylene Glycol Powder 17 Grams Packet PO 04/07/24 22:39
DAILYPRN PRN
constipation
Pramipexole Dihydrochloride 0.125 mg 03/11/24 14:00 03/12/24 08:05
Pramipexole 0.125 Mg Tablet PO 04/08/24 13:59 0.125 mg
DAILY RUBY Administration
Senna/Docusate Sodium 1 tablet 03/10/24 22:40
Docusate W/Senna (Joanne-Colace) Tablet PO 04/07/24 22:39
BIDPRN PRN
constipation
Sodium Chloride 0 flush 03/10/24 23:00
Sodium Chloride 0.9% (Flush) Syringe IV 04/07/24 22:59
PER PROTOCOL RUBY
Tamsulosin HCl 0.4 mg 03/10/24 22:40 03/11/24 23:10
Tamsulosin 0.4 Mg Capsule PO 04/07/24 22:39 0.4 mg
HS RUBY Administration
Trazodone HCl 50 mg 03/10/24 22:40 03/11/24 23:10
Trazodone 50 Mg Tablet PO 04/07/24 22:39 50 mg
HSPRN PRN Administration
sleep
Valsartan 160 mg 03/11/24 08:00 03/12/24 08:05
Valsartan 160 Mg Tablet PO 04/08/24 07:59 160 mg
DAILY RUBY Administration
Home Medications
-
Home Medications
acetaminophen 650 mg tablet,extended release (Tylenol Arthritis Pain) 650 mg PO Q8HPRN PRN mild pain 03/10/24
aspirin 81 mg chewable tablet 81 mg PO HS 03/10/24
ketoconazole 2 % shampoo 1 applic topical DAILY 03/10/24
tamsulosin 0.4 mg capsule 0.4 mg PO HS 03/10/24
trazodone 50 mg tablet 50 mg PO HSPRN PRN sleep 03/10/24
valsartan 160 mg tablet 160 mg PO DAILY 03/10/24
[2024-03-12 14:47] LABS: Folate 15.8 ng/ml (2.76-20)
[2024-03-12 15:00] VITALS: BP 131/72; BP 134/75; BP 135/64; PULSE 65; PULSE 68; PULSE 71
--- NOTE | 2024-03-12 16:37 | PTCARENOTE ---
Pt with low BP at lunch time 88/53. Dr Velasco was present on floor and ordered 5oo cc saline bolus. BP still 88/53 another bolus of 500 cc saline and BP improved 130/68.
[2024-03-12] MEDS: LOVENOX 40 MG SC (17:04)
[2024-03-12 19:30] VITALS: BP 114/58; BP 122/59; BP 129/64; PULSE 66; PULSE 70; PULSE 77
[2024-03-12 19:35] LABS: Hepatitis B Surface Antigen Negative (Negative)
[2024-03-12 19:53] LABS: Hepatitis A Antibody, Total Negative (Negative); Hepatitis B Surface Antibody Negative; Hepatitis C Antibody Negative (Negative)
[2024-03-12] MEDS: LOW STRENGTH ASPIRIN 81 MG PO (19:58)
[2024-03-12] MEDS: DESYREL 50 MG PO (23:00)
[2024-03-12 23:34] VITALS: BP 118/60
[2024-03-13] VITALS (9 sets, daily range): BP systolic 93–161; BP diastolic 57–80; PULSE 59–73
[2024-03-13] MEDS: VITAMIN B-12 1000 MCG PO (08:03)
--- NOTE | 2024-03-13 08:49 | W.PN.HOSP.TC ---
Today's Communication/Plan
-
see A/P
Assessment / Plan
Assessment / Plan
HPI: 78-year-old with past medical history significant for hypertension, BPH; p/w multiple recent falls. Patient denies any syncopal events. He denies feeling dizzy or lightheaded. He denies vertigo. He denies any changes in his vision.
He reports a history of intermittent ankle swelling and some numbness or tingling in the feet bilaterally. He denies any history of chronic back pain or back surgery. He denies incontinence of the bowel or bladder. He denies any weakness.
Sensation is otherwise intact. He denies any headache. Patient given example of a fall where he was walking down the street and he felt like something pulled him forward. This appears to be gait abnormality.
He reports that his doctors have been adjusting his medications to balance his falls. He does lives at home by himself. Denies etoh.
A/P:
# Frequent falls, suspect 2/2 Parkinson's disease vs Parkinsonism
hemodynamically stable
CT head noted Multiple small low-attenuation lesions in the caudate nuclei, basal ganglia, and left thalamus. Diagnostic possibilities are (1) ischemic lacunar infarcts or (2) dilated perivascular spaces.
CT cervical and thoracic spine: No acute fracture or subluxation.
MRI brain confirmed numerous small brains lesions, favoring prominent perivascular spaces over multiple small old lacunar infarcts
Orthostatic VS from admission acceptable
UA clean, TSH WNL at 2.03
Vit B 12 level noted low at 300, started B12 supplement
RPR was ordered from admission, can follow up
Mirapex was started which resulted in severe hypotension, stopped further
PT OT recc acute, PMR consulted
# Transaminitis, mild
Abd US unremarkable
Follow LFT
hepatitis panel negative
# Bradycardia
EKG with sinus niall with sinus arrhythmia with 1se degree A V Block, right bundle branch block.
tele
# BPH
Flomax
# Essential HTN
resume Valsartan at decreased dose 80 mg daily 03/14 with hold parameter
DVT PPX - lovenox sq
Code status - Full Code
Dispo: PT OT recc acute, PMR consulted
DW RN
updated daughter on the phone
total time spent 51 min
Anticipated Discharge: > 48 hours
Subjective/Interval History
-
Date of Service: March 13, 2024
Objective Data
-
Labs:
Laboratory Results
03/13/24
08:32
Sodium Pending
Potassium Pending
Chloride Pending
Carbon Dioxide Pending
BUN Pending
Creatinine Pending
Glucose Pending
Calcium Pending
Total Bilirubin Pending
AST Pending
ALT Pending
Alkaline Phosphatase Pending
Vital Signs:
Vital Signs
Temp Pulse Resp BP Pulse Ox
36.6 C 61 18 136/73 99
03/13/24 07:32 03/13/24 07:32 03/13/24 07:32 03/13/24 07:32 03/13/24 07:32
I&O
03/12/24 03/13/24 03/14/24
06:59 06:59 06:59
Intake Total 760 / 760 1480 / 1480
Output Total 600 / 600 1175 / 1175
Balance 160 / 160 305 / 305
Review of Systems
-
Musculoskeletal: Reports Other (frequent falls )
Physical Exam
-
General: Well Developed, Well Nourished, No Apparent Distress, Comfortable, Conversant (slow soft speech) and Appears Chronically Ill; Negative Respiratory Distress
HEENT: Normocephalic, Atraumatic, Nose Appears Normal and Ears Appear Normal; Negative Oxygen
Respiratory: Clear to Auscultation and Non Labored Respirations; Negative Accessory Resp Muscle Use
Cardiac: Regular Rhythm and S1/S2
GI: Soft, Nontender, Nondistended and Normal Bowel Sounds
Skin: Warm and Dry
Neuro: Awake, Alert, Oriented and Other (flattened facial expression, slow movement )
Psych: Calm and Intact Judgement/Insight
Data Reviewed
-
CT Scan: Report Reviewed by me
MRI: Report Reviewed by me
Labs: Labs Reviewed by me
[2024-03-13 09:19] LABS: ALT (SGPT) 89 U/L (0-50); AST (SGOT) 63 U/L (17-59); Albumin 3.8 g/dl (3.5-5.0); Alkaline Phosphatase 76 U/L (38-126); Blood Urea Nitrogen 23 mg/dl (9-20); Calcium 9.4 mg/dl (8.4-10.2); Carbon Dioxide 33 mmol/L (22-30); Chloride 102 mmol/L (98-107); Estimated Creatinine Clearance 76 ml/min; Glucose 112 mg/dl (70-99); Potassium 4.4 mmol/L (3.5-5.1); Sodium 139 mmol/L (135-145); Total Protein 6.5 g/dl (6.3-8.2); eGFR > 60.00
[2024-03-13] MEDS: NSS 250 IV (09:45)
--- NOTE | 2024-03-13 10:02 | CM ---
Patient seen at bedside. Physician indicated that she had sent referral to [facility], awaiting response. CM will update [facility] and continue to follow for discharge planning needs.
Plan; Acute Rehab
[2024-03-13 16:24] LABS: Syphilis/T. pallidum Ab Reflex Negative (Negative)
[2024-03-13] MEDS: LOVENOX SC (16:32)
--- NOTE | 2024-03-13 17:25 | CON.MD ---
Addendum entered and electronically signed by Javier Serrano MD 03/13/24 18:06:
Could be orthostatic as well, check daily. Monitor for supine HTN and BP drop when standing.
Original Note:
Documented by User: Desiree Dhillon PA-C 03/13/24 17:45
Consultation - Medical
-
Referring Provider:�Rose Cook
Chief Complaint:�Ambulatory dysfunction
�
History of Present Illness:�Patient is a 78-year-old male with PMH of ( hypertension, BPH) presenting with frequent falls over the past 6 months. Per patient, it feels like his feet get stuck sometimes, although at times he cannot slow down. He
feels off balance, falls when trying to take his shoes off while standing. States that he was on amlodipine for hypertension but switched 3 weeks ago to losartan secondary to lower extremity edema . Denies numbness, weakness, tingling, visual
changes, incontinence, fever, chills, chest pain or shortness of breath. Pt denies any dizziness or lightheadedness. denied abdominal pain,n,v,d. denied dysuria or hematuria. he has lost 10 lbs in few weeks.
Head CT with Multiple small low-attenuation lesions in the caudate nuclei, basal ganglia, and left thalamus. Diagnostic possibilities are (1) ischemic lacunar infarcts or (2) dilated perivascular spaces.
MRI of Brain: Numerous small foci of CSF signal intensity as described, corresponding to findings seen on CT scan. Differential considerations of multiple small old lacunar infarcts versus prominent perivascular spaces. Radiologist slightly favor
prominent perivascular spaces.Mild diffuse atrophy in this 78-year-old patient. Mild to moderate T2 and FLAIR white matter hyperintensities, commonly seen with aging and usually attributed to small vessel ischemic disease.
Per neurology:Mr. Calvert reports significant improvement in urge to move his legs in the evening following Mirapex initiation. Mirapex was started which resulted in severe hypotension, no further doses. hemodynamically stable. RPR-ordered.
Homocysteine - pending, Methylmalonic acid - pending. UA clean, TSH WNL at 2.03
Past Medical History:� hypertension, BPH
Procedure History:�Denies
Family History:�cancer
�
Social History:�
Functional Level Premorbidly:�Independent with all activities�
Functional Level Currently:�Transfer�min assist, ambulating with rolling walker 130 feet with min assist, Grooming, lower extremity self-care�min assist, toilet transfer�mod assist,
�
Tobacco:�Denies�
Alcohol:�Occasional
Drug use:�Denies�
�
Lives with:�Alone, past 3 months. Daughter cooks meals and help with laundry. Has a cane but does not use
24-hour assistance available:�
Number of floors: Multilevel
steps to enter:�3
# steps to second Floor: FF
Potential First floor set up:�
Driving:�No
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
�
�
Allergies:�
Allergy/AdvReac Type Severity Reaction Status Date / Time
No Known Allergies Allergy Unverified 03/10/24 12:32
�
Review of Systems:�
Constitutional: (x) Normal _
Eye: (x) Normal _
Ear/Nose/Throat: (x) abNormal _hearing impairment
Respiratory: (x) Normal _
Cardiovascular: (x) abNormal _ bradycardia
Gastrointestinal: (x) Normal _
Genitourinary: (x) abNormal _Flomax 0.4mg
Musculoskeletal: (x) abNormal _slow movement, falls
Integumentary: (x) Normal _
Neurologic: (x) abNormal _ dysphonia, Positive for imbalance, urge to move legs in the evening, change in handwriting, bradykinesia's
Psychiatric: (x) Normal _
Endocrine: (x) Normal _
Hematologic/Lymphatic: (x) Normal _
Allergic/Immunologic: (x) Normal _
�
Medications:�
Active Current Visit Medication List
Category Date Time Status
Acetaminophen [Tylenol] Med 03/10/24 22:40 Active
650 mg PO Q4HPRN PRN
Aspirin Chewable [Low Strength Aspirin] Med 03/10/24 22:40 Active
81 mg PO HS
Bisacodyl [Dulcolax] Med 03/10/24 22:40 Active
10 mg RECTAL [id number] PRN
Cyanocobalamin [Vitamin B-12] Med 03/13/24 08:00 Active
1,000 mcg PO DAILY
Docusate W/Senna [Senokot-S] Med 03/10/24 22:40 Active
1 tablet PO BIDPRN PRN
Enoxaparin Sodium [Lovenox] Med 03/11/24 18:00 Active
40 mg SC QPM
Flush (0.9% Sodium Chloride) [Flush (Nss)] Med 03/10/24 23:00 Active
See Dose Instructions IV PER PROTOCOL
Polyethylene Glycol Powder [Miralax] Med 03/10/24 22:40 Active
17 grams PO DAILYPRN PRN
Tamsulosin [Flomax] Med 03/10/24 22:40 Hold
0.4 mg PO HS
Trazodone [Desyrel] Med 03/10/24 22:40 Active
50 mg PO HSPRN PRN
Valsartan [Diovan] Med 03/11/24 08:00 Hold
160 mg PO DAILY
Valsartan [Diovan] Med 03/14/24 08:00 Active
80 mg PO DAILY
�
Vitals:�
Temp Pulse Resp BP Pulse Ox
98.3 F 59 20 93/61 97
03/13/24 15:28 03/13/24 15:28 03/13/24 15:28 03/13/24 15:28 03/13/24 15:28
Height 5 ft 10 in
Actual Weight 71.441 kg
Body Mass Index (BMI) 22.6
�
Physical Exam:�
General Appearance/Observation: Well-developed, well-nourished individual in no apparent distress.�
Pain/Comfort Assessment: Denies�
Mood/Affect: Appropriate,
�
Integumentary/Operative Site:�
�� Pressure Ulcer Evaluation: absent over heels.�
��
�� Other Type of Wound: absent�
�
Eyes: Conjunctiva/Lids: normal���� Pupils: pupils equal round and reactive to light and Accommodation�
Ears/Nose/Throat: oral mucosa moist,� throat clear.������������ Lips/Teeth/Gums: normal�
Neck: No muscle spasm or tenderness�
Cardiovascular: Heart: regular, no murmur�
Pulses: dorsalis pedis 2+ bilaterally�
Respiratory: Respiratory Effort/Chest Expansion: normal������� Auscultation: Clear to auscultation bilaterally�
Gastrointestinal: abdomen not tender, no distension, normal abdominal bowel sounds
Genitourinary: No Wallace�
Extremities:�Edema: None�Cyanosis: None�Trophic�changes: yes and reddish brownish discoloration, scab- side of right knee
�
Neurology Exam:
Orientation: Alert, Oriented to self, Time, Place�
Memory: Intact for immediate medical concerns
Comprehension: Intact
Two step command: needs repeating and cueing
Naming: Intact
Cranial Nerves:
�� CNII:�Pupillary light reflex: Intact����Visual Field: Intact
�� CN III, IV, : Extraocular muscles: Intact�
�� CN V:�Facial Sensation�at�Forehead: Intact,�Maxilla: Intact,�Mandible: Intact
�� CN VII:�Facial movement: Symmetric
�� CN VIII:�Hearing: some impairment
�� CN IX/X:�Speech & swallow: low, soft�Position of Uvula: Midline
�� CN XI:�Shoulder shrug: weakness, discrepancy in shoulder height- on the left side, right clavicular bone more prominent on the right
�� CN XII:�Tongue protrusion: Midline
Sensory:
�� Light touch: Intact in bilateral upper and lower extremities
��
�
Reflexes:
�� Biceps: 2+ bilaterally
�� Brachioradialis: 2+ bilaterally
�� Triceps: 2+ bilaterally
�� Patellar: 3+ bilaterally
�� Achilles: 2+ bilaterally
�� Babinski: Down going bilaterally
�� Clonus: none
�� Elvira: Negative bilaterally�
Cerebellar: Dysmetria/Ataxia: None�
Musculoskeletal:
Motor: (Manual muscle scale 0-5)�
Muscle SA EF WE EE FF FA HF KE DF EHL PF
Right� 5 5 5 5 5 5 5 4 5 4 5
Left 4 5 5 5 5 5 5 4 5 4 5
�Slow transitioning from sitting to standing. Off balance and tends to lean forward then posteriorly with short walk in the room.
Tone:
Range of Motion: Passively within normal limits in all extremities�
�
Lab Results
Labs
WBC 7.5 10^3/uL (4.8-10.8) 03/10/24 15:12
RBC 4.03 10^6/uL (4.70-6.10) L 03/10/24 15:12
Hgb 13.1 g/dL (13.0-18.0) 03/10/24 15:12
Hct 39.7 % (39.0-52.0) 03/10/24 15:12
MCV 98.5 fL (80.0-94.0) H 03/10/24 15:12
MCH 32.5 pg (27.0-31.0) H 03/10/24 15:12
MCHC 33.0 g/dL (33.0-37.0) 03/10/24 15:12
RDW 12.4 % (11.5-14.5) 03/10/24 15:12
Plt Count 177 10^3/uL (130-400) 03/10/24 15:12
MPV 9.2 fL (7.4-10.4) 03/10/24 15:12
Abs Immat Gran (auto) 0.0 10^3/uL (0-0.05) 03/10/24 15:12
Absolute Neuts (auto) 5.4 10^3/uL (1.4-6.5) 03/10/24 15:12
Absolute Lymphs (auto) 1.1 10^3/uL (1.2-3.4) L 03/10/24 15:12
Absolute Monos (auto) 0.7 10^3/uL (0.1-0.6) H 03/10/24 15:12
Absolute Eos (auto) 0.2 10^3/uL (0-0.7) 03/10/24 15:12
Absolute Basos (auto) 0.0 10^3/uL (0-0.2) 03/10/24 15:12
Immature Gran % 0.4 % (0-0.5) 03/10/24 15:12
Neutrophils % 71.8 % (42.2-75.2) 03/10/24 15:12
Lymphocytes % 14.9 % (20.5-51.1) L 03/10/24 15:12
Monocytes % 9.3 % (1.7-9.3) 03/10/24 15:12
Eosinophils % 3.2 % (0-6) 03/10/24 15:12
Basophils % 0.4 % (0-2) 03/10/24 15:12
Nucleated RBC % 0 % (-) 03/10/24 15:12
ESR 16 mm/hour (0-20) 03/11/24 06:34
Sodium 139 mmol/L (135-145) 03/13/24 08:32
Potassium 4.4 mmol/L (3.5-5.1) 03/13/24 08:32
Chloride 102 mmol/L (98-107) 03/13/24 08:32
Carbon Dioxide 33 mmol/L (22-30) H 03/13/24 08:32
BUN 23 mg/dl (9-20) H 03/13/24 08:32
Creatinine 0.8 mg/dL (0.7-1.3) 03/13/24 08:32
Estimated Creat Clear 76 ml/min 03/13/24 08:32
eGFR > 60.00 03/13/24 08:32
Glucose 112 mg/dl (70-99) H 03/13/24 08:32
Calcium 9.4 mg/dl (8.4-10.2) 03/13/24 08:32
Magnesium 2.2 mg/dl (1.6-2.3) 03/12/24 06:37
Iron 47 ug/dl (49-181) L 03/11/24 13:53
TIBC 217 ug/dl (261-462) L 03/11/24 13:53
% Saturation 21 % (20-50) 03/11/24 13:53
Ferritin 271.0 ng/ml (17.9-464.0) 03/11/24 13:53
Total Bilirubin 1.0 mg/dl (0.2-1.3) 03/13/24 08:32
AST 63 U/L (17-59) H 03/13/24 08:32
ALT 89 U/L (0-50) H 03/13/24 08:32
Alkaline Phosphatase 76 U/L (38-126) 03/13/24 08:32
Total Protein 6.5 g/dl (6.3-8.2) 03/13/24 08:32
Albumin 3.8 g/dl (3.5-5.0) 03/13/24 08:32
Lipase Cancelled 03/10/24 15:53
Vitamin B12 291 pg/ml (239-931) 03/11/24 13:53
Folate 15.8 ng/ml (2.76-20) 03/12/24 13:04
TSH (Reflex) 2.03 uIU/ml (0.47-4.68) 03/11/24 06:34
Urine Color Yellow 03/10/24 17:02
Urine Clarity Clear (Clear) 03/10/24 17:02
Urine pH 6.0 (5.0-9.0) 03/10/24 17:02
Ur Specific [place] 1.025 (<1.030) 03/10/24 17:02
Urine Ketones Negative (Negative) 03/10/24 17:02
Ur Occult Blood Reflex Negative (Negative) 03/10/24 17:02
Urine Nitrite (Reflex) Negative (Negative) 03/10/24 17:02
Urine Bilirubin Negative (Negative) 03/10/24 17:02
Urine Urobilinogen Negative (Neg - 1+) 03/10/24 17:02
Leukocyte Esterase Rfl Negative (Negative) 03/10/24 17:02
Urine Glucose Negative (Negative) 03/10/24 17:02
Urine Albumin (Reflex) Negative (Neg - Trace) 03/10/24 17:02
Hepatitis A Ab Total Negative (Negative) 03/11/24 06:34
Hep Bs Antigen Negative (Negative) 03/11/24 06:34
Hep Bs Antibody Negative 03/11/24 06:34
Hepatitis C Antibody Negative (Negative) 03/11/24 06:34
�
Diagnostic Results:�as per HPI�
�
Assessment: Patient is a 78-year-old male with PMH of ( hypertension, BPH) presenting with frequent falls over the past 6 months, bradykinesia, gait dysfunction with MRI findings of Multiple small low-attenuation lesions in the caudate nuclei,
basal ganglia, and left thalamus. Diagnostic possibilities are (1) ischemic lacunar infarcts or (2) dilated perivascular spaces with neurology favoring the latter.
�
Plan�
PM&R�PT/OT to increase independence with ADLs, improve balance, coordination, endurance, strength, mobility, community reintegration, decreased burden of care on others and family education.�
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 Mirapex was started which resulted in severe hypotension, stopped further doses. hemodynamically stable. RPR-ordered. MRI of brain-numerous
small brains lesions, favoring prominent perivascular spaces. UA clean, TSH WNL at 2.03. CT cervical and thoracic spine: No acute fracture or subluxation.
Transaminitis, mild: Abd US unremarkable. Follow LFT. hepatitis panel negative
Bradycardia: EKG with sinus niall with sinus arrhythmia with 1st degree A V Block, right bundle branch block. Telemetry
HTN: Valsartan decreased dose 80 mg daily start 03/14 with hold parameter-per neurology. Currently on 160mg qd
Anemia: Likely multifactorial.� Continue to monitor.�
Psych: Psychology consult.� Monitor mood, Trazodone 50mg prn
Skin: monitor for pressure sores/rashes/lesions.�
Pain: acetaminophen as needed.�
Bowel: Colace and Senna, PRN bisacodyl.�
Bladder/BPH: Time void, PVRs, PRN straight cath.�Tamsulosin 0.4mg
GI Prophylaxis: Pantoprazole�
DVT Prophylaxis: Lovenox
Pulmonary: Incentive spirometry�
Safety: Continue to reinforce assistance with all transfers.�
Code Status:� Full code
Dispo�(date/plan/equipment needs): Home with family care.� Social history reviewed.�
�
Functional and Medical Goals:�Modified Independent with ADL�s, ambulation, transfers�
�
Discharge Destination:�Acute inpatient rehab
�
Summary of recommendations: Patient with gait dysfunction and frequent falls suspected from parkinsonism vs Parkinson Disease would benefit from acute inpatient rehabilitation. Would Appreciate neuro input regarding treatment options. Any
contraindication to trial of Sinemet? prior to discharge
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 Mirapex was started which resulted in severe hypotension, stopped further doses. hemodynamically stable. RPR-ordered. MRI of brain-numerous
small brains lesions, favoring prominent perivascular spaces. UA clean, TSH WNL at 2.03. CT cervical and thoracic spine: No acute fracture or subluxation. OP Amelia scan. OP neurology follow up in 1-2 weeks
HTN: Valsartan decreased dose 80 mg daily start 03/14 with hold parameter-per neurology. Currently on 160mg qd.
DVT Prophylaxis: Lovenox
Pulmonary: Incentive spirometry��
Bradycardia: EKG with sinus niall with sinus arrhythmia with 1st degree A V Block, right bundle branch block. Telemetry.
Bowel: Colace and Senna, PRN bisacodyl.�
Bladder/BPH: Time void, PVRs, PRN straight cath.�Tamsulosin 0.4mg
�
Thank you for allowing me to care for your patient. Please contact me with any questions or concerns.

Documented by User: Javier Serrano MD 03/13/24 18:00
Consultation - Medical
-
Referring Provider:�Rose Cook
Chief Complaint:�Ambulatory dysfunction
�
History of Present Illness:�Patient is a 78-year-old right-handed male with PMH (hypertension, BPH) presenting with frequent falls over the past 6 months. Per patient, it feels like his feet get stuck sometimes, although at times he cannot slow
down. He feels off balance, falls when trying to take his shoes off while standing. States that he was on amlodipine for hypertension but switched 3 weeks ago to losartan secondary to lower extremity edema . Denies numbness, weakness, tingling,
visual changes, incontinence, fever, chills, chest pain or shortness of breath. Pt denies any dizziness or lightheadedness. denied abdominal pain,n,v,d. denied dysuria or hematuria. he has lost 10 lbs in few weeks.
Head CT with Multiple small low-attenuation lesions in the caudate nuclei, basal ganglia, and left thalamus. Diagnostic possibilities are (1) ischemic lacunar infarcts or (2) dilated perivascular spaces.
MRI of Brain: Numerous small foci of CSF signal intensity as described, corresponding to findings seen on CT scan. Differential considerations of multiple small old lacunar infarcts versus prominent perivascular spaces. Radiologist slightly favor
prominent perivascular spaces.Mild diffuse atrophy in this 78-year-old patient. Mild to moderate T2 and FLAIR white matter hyperintensities, commonly seen with aging and usually attributed to small vessel ischemic disease.
Per neurology:Mr. Calvert reports significant improvement in urge to move his legs in the evening following Mirapex initiation. Mirapex was started which resulted in severe hypotension, no further doses. hemodynamically stable. RPR-ordered.
Homocysteine - pending, Methylmalonic acid - pending. UA clean, TSH WNL at 2.03
Past Medical History:� hypertension, BPH
Procedure History:�Denies
Family History:�cancer
�
Social History:�
Functional Level Premorbidly:�Independent with all activities�
Functional Level Currently:�Transfer�min assist, ambulating with rolling walker 130 feet with min assist, Grooming, lower extremity self-care�min assist, toilet transfer�mod assist,
�
Tobacco:�Denies�
Alcohol:�Occasional
Drug use:�Denies�
�
Lives with:�Alone, past 3 months. Daughter cooks meals and help with laundry. Has a cane but does not use
24-hour assistance available:�No
Number of floors: Multilevel
steps to enter:�3
# steps to second Floor: FF
Potential First floor set up:�Possibly
Driving:�No
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
�
�
Allergies:�
Allergy/AdvReac Type Severity Reaction Status Date / Time
No Known Allergies Allergy Unverified 03/10/24 12:32
�
Review of Systems:�
Constitutional: (x) abNormal _fatigue, decreased appetite, recent weight loss. No fevers or chills. Still has good appetite.
Eye: (x) Normal _
Ear/Nose/Throat: (x) abNormal _hearing impairment
Respiratory: (x) Normal _
Cardiovascular: (x) abNormal _ bradycardia
Gastrointestinal: (x) Normal _
Genitourinary: (x) abNormal _Flomax 0.4mg
Musculoskeletal: (x) abNormal _slow movement, frequent falls
Integumentary: (x) Normal _
Neurologic: (x) abNormal _ dysphonia, Positive for imbalance, urge to move legs in the evening, change in handwriting, trouble getting started with walking. Walking and then speeding up faster until he falls
Psychiatric: (x) Normal _
Endocrine: (x) Normal _
Hematologic/Lymphatic: (x) Normal _
Allergic/Immunologic: (x) Normal _
�
Medications:�
Active Current Visit Medication List
Category Date Time Status
Acetaminophen [Tylenol] Med 03/10/24 22:40 Active
650 mg PO Q4HPRN PRN
Aspirin Chewable [Low Strength Aspirin] Med 03/10/24 22:40 Active
81 mg PO HS
Bisacodyl [Dulcolax] Med 03/10/24 22:40 Active
10 mg RECTAL [id number] PRN
Cyanocobalamin [Vitamin B-12] Med 03/13/24 08:00 Active
1,000 mcg PO DAILY
Docusate W/Senna [Senokot-S] Med 03/10/24 22:40 Active
1 tablet PO BIDPRN PRN
Enoxaparin Sodium [Lovenox] Med 03/11/24 18:00 Active
40 mg SC QPM
Flush (0.9% Sodium Chloride) [Flush (Nss)] Med 03/10/24 23:00 Active
See Dose Instructions IV PER PROTOCOL
Polyethylene Glycol Powder [Miralax] Med 03/10/24 22:40 Active
17 grams PO DAILYPRN PRN
Tamsulosin [Flomax] Med 03/10/24 22:40 Hold
0.4 mg PO HS
Trazodone [Desyrel] Med 03/10/24 22:40 Active
50 mg PO HSPRN PRN
Valsartan [Diovan] Med 03/11/24 08:00 Hold
160 mg PO DAILY
Valsartan [Diovan] Med 03/14/24 08:00 Active
80 mg PO DAILY
�
Vitals:�
Temp Pulse Resp BP Pulse Ox
98.3 F 59 20 93/61 97
03/13/24 15:28 03/13/24 15:28 03/13/24 15:28 03/13/24 15:28 03/13/24 15:28
Height 5 ft 10 in
Actual Weight 71.441 kg
Body Mass Index (BMI) 22.6
�
Physical Exam:�
General Appearance/Observation: Well-developed, well-nourished male in no apparent distress.�
Pain/Comfort Assessment: Denies�
Mood/Affect: Appropriate
�
Integumentary/Operative Site:��� Pressure Ulcer Evaluation: absent over heels.�
�
Eyes: Conjunctiva/Lids: normal���� Pupils: pupils equal round and reactive to light and Accommodation�
Ears/Nose/Throat: oral mucosa moist,� throat clear.������������ Lips/Teeth/Gums: normal�
Neck: No muscle spasm or tenderness�
Cardiovascular: Heart: regular, no murmur�
Pulses: dorsalis pedis 2+ bilaterally�
Respiratory: Respiratory Effort/Chest Expansion: normal������� Auscultation: Clear to auscultation bilaterally�
Gastrointestinal: abdomen not tender, no distension, normal abdominal bowel sounds
Genitourinary: No Wallace�
Extremities:�Edema: None�Cyanosis: None�Trophic�changes: yes and reddish brownish discoloration, scab-lateral right knee
�
Neurology Exam:
Orientation: Alert, Oriented to self, Time, Place�
Memory: Intact for immediate medical concerns
Comprehension: Intact
Two step command: needs repeating and cueing
Naming: Intact
Cranial Nerves: Resting tremor
�� CNII:�Pupillary light reflex: Intact����Visual Field: Intact
�� CN III, IV, : Extraocular muscles: Intact�
�� CN V:�Facial Sensation�at�Forehead: Intact,�Maxilla: Intact,�Mandible: Intact
�� CN VII:�Facial movement: Symmetric
�� CN VIII:�Hearing: some impairment
�� CN IX/X:�Speech & swallow: low, soft�Position of Uvula: Midline
�� CN XI:�Shoulder shrug: weakness, discrepancy in shoulder height- on the left side, right clavicular bone more prominent on the right
�� CN XII:�Tongue protrusion: Midline
Sensory:
�� Light touch: Intact in bilateral upper and lower extremities
�� �
Reflexes:
�� Biceps: 2+ bilaterally
�� Brachioradialis: 2+ bilaterally
�� Triceps: 2+ bilaterally
�� Patellar: 3+ bilaterally
�� Achilles: 2+ bilaterally
�� Babinski: Down going bilaterally
�� Clonus: none
�� Elvira: Negative bilaterally�
Cerebellar: Dysmetria/Ataxia: None�
Musculoskeletal: Motor: (Manual muscle scale 0-5)�
Muscle SA EF WE EE FF FA HF KE DF EHL PF
Right� 4 5 5 5 5 4 4 5 4 5
Left 3+ 5 5 5 5 4 4 5 4 5
�Slow transitioning from sitting to standing. Off balance and tends to lean forward then posteriorly with short walk in the room.
Tone:
Range of Motion: Passively within normal limits in all extremities�
�
Lab Results
Labs
WBC 7.5 10^3/uL (4.8-10.8) 03/10/24 15:12
RBC 4.03 10^6/uL (4.70-6.10) L 03/10/24 15:12
Hgb 13.1 g/dL (13.0-18.0) 03/10/24 15:12
Hct 39.7 % (39.0-52.0) 03/10/24 15:12
MCV 98.5 fL (80.0-94.0) H 03/10/24 15:12
MCH 32.5 pg (27.0-31.0) H 03/10/24 15:12
MCHC 33.0 g/dL (33.0-37.0) 03/10/24 15:12
RDW 12.4 % (11.5-14.5) 03/10/24 15:12
Plt Count 177 10^3/uL (130-400) 03/10/24 15:12
MPV 9.2 fL (7.4-10.4) 03/10/24 15:12
Abs Immat Gran (auto) 0.0 10^3/uL (0-0.05) 03/10/24 15:12
Absolute Neuts (auto) 5.4 10^3/uL (1.4-6.5) 03/10/24 15:12
Absolute Lymphs (auto) 1.1 10^3/uL (1.2-3.4) L 03/10/24 15:12
Absolute Monos (auto) 0.7 10^3/uL (0.1-0.6) H 03/10/24 15:12
Absolute Eos (auto) 0.2 10^3/uL (0-0.7) 03/10/24 15:12
Absolute Basos (auto) 0.0 10^3/uL (0-0.2) 03/10/24 15:12
Immature Gran % 0.4 % (0-0.5) 03/10/24 15:12
Neutrophils % 71.8 % (42.2-75.2) 03/10/24 15:12
Lymphocytes % 14.9 % (20.5-51.1) L 03/10/24 15:12
Monocytes % 9.3 % (1.7-9.3) 03/10/24 15:12
Eosinophils % 3.2 % (0-6) 03/10/24 15:12
Basophils % 0.4 % (0-2) 03/10/24 15:12
Nucleated RBC % 0 % (-) 03/10/24 15:12
ESR 16 mm/hour (0-20) 03/11/24 06:34
Sodium 139 mmol/L (135-145) 03/13/24 08:32
Potassium 4.4 mmol/L (3.5-5.1) 03/13/24 08:32
Chloride 102 mmol/L (98-107) 03/13/24 08:32
Carbon Dioxide 33 mmol/L (22-30) H 03/13/24 08:32
BUN 23 mg/dl (9-20) H 03/13/24 08:32
Creatinine 0.8 mg/dL (0.7-1.3) 03/13/24 08:32
Estimated Creat Clear 76 ml/min 03/13/24 08:32
eGFR > 60.00 03/13/24 08:32
Glucose 112 mg/dl (70-99) H 03/13/24 08:32
Calcium 9.4 mg/dl (8.4-10.2) 03/13/24 08:32
Magnesium 2.2 mg/dl (1.6-2.3) 03/12/24 06:37
Iron 47 ug/dl (49-181) L 03/11/24 13:53
TIBC 217 ug/dl (261-462) L 03/11/24 13:53
% Saturation 21 % (20-50) 03/11/24 13:53
Ferritin 271.0 ng/ml (17.9-464.0) 03/11/24 13:53
Total Bilirubin 1.0 mg/dl (0.2-1.3) 03/13/24 08:32
AST 63 U/L (17-59) H 03/13/24 08:32
ALT 89 U/L (0-50) H 03/13/24 08:32
Alkaline Phosphatase 76 U/L (38-126) 03/13/24 08:32
Total Protein 6.5 g/dl (6.3-8.2) 03/13/24 08:32
Albumin 3.8 g/dl (3.5-5.0) 03/13/24 08:32
Lipase Cancelled 03/10/24 15:53
Vitamin B12 291 pg/ml (239-931) 03/11/24 13:53
Folate 15.8 ng/ml (2.76-20) 03/12/24 13:04
TSH (Reflex) 2.03 uIU/ml (0.47-4.68) 03/11/24 06:34
Urine Color Yellow 03/10/24 17:02
Urine Clarity Clear (Clear) 03/10/24 17:02
Urine pH 6.0 (5.0-9.0) 03/10/24 17:02
Ur Specific [place] 1.025 (<1.030) 03/10/24 17:02
Urine Ketones Negative (Negative) 03/10/24 17:02
Ur Occult Blood Reflex Negative (Negative) 03/10/24 17:02
Urine Nitrite (Reflex) Negative (Negative) 03/10/24 17:02
Urine Bilirubin Negative (Negative) 03/10/24 17:02
Urine Urobilinogen Negative (Neg - 1+) 03/10/24 17:02
Leukocyte Esterase Rfl Negative (Negative) 03/10/24 17:02
Urine Glucose Negative (Negative) 03/10/24 17:02
Urine Albumin (Reflex) Negative (Neg - Trace) 03/10/24 17:02
Hepatitis A Ab Total Negative (Negative) 03/11/24 06:34
Hep Bs Antigen Negative (Negative) 03/11/24 06:34
Hep Bs Antibody Negative 03/11/24 06:34
Hepatitis C Antibody Negative (Negative) 03/11/24 06:34
�
Diagnostic Results:�as per HPI�
�
Assessment:
78-year-old male with PMH of ( hypertension, BPH) presenting with frequent falls over the past 6 months, bradykinesia, gait dysfunction with MRI findings of Multiple small low-attenuation lesions in the caudate nuclei, basal ganglia, and left
thalamus. Diagnostic possibilities are (1) ischemic lacunar infarcts or (2) dilated perivascular spaces with neurology favoring the latter.
�
Plan�
PM&R�PT/OT to increase independence with ADLs, improve balance, coordination, endurance, strength, mobility, community reintegration, decreased burden of care on others and family education.�
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 Mirapex was started which resulted in severe hypotension, stopped further doses. hemodynamically stable. RPR-ordered. MRI of brain-numerous
small brains lesions, favoring prominent perivascular spaces. UA clean, TSH WNL at 2.03. CT cervical and thoracic spine: No acute fracture or subluxation.
Transaminitis, mild: Abd US unremarkable. Follow LFT. hepatitis panel negative
Bradycardia: EKG with sinus niall with sinus arrhythmia with 1st degree A V Block, right bundle branch block. Telemetry
HTN: Valsartan decreased dose 80 mg daily start 03/14 with hold parameter-per neurology. Currently on 160mg qd
-Patient with systolic blood pressure in the 180-190 range per discussion with nursing. Would avoid taking blood pressure machines as they can be falsely elevated sometimes for your 50 points higher. Would check blood pressures manually only.
Anemia: Likely multifactorial.� Continue to monitor.�
Psych: Psychology consult.� Monitor mood, Trazodone 50mg prn
Skin: monitor for pressure sores/rashes/lesions.�
Pain: acetaminophen as needed.�
Bowel: Colace and Senna, PRN bisacodyl.�
Bladder/BPH: Time void, PVRs, PRN straight cath.�Tamsulosin 0.4mg
GI Prophylaxis: Pantoprazole�
DVT Prophylaxis: Lovenox
Pulmonary: Incentive spirometry�
Safety: Continue to reinforce assistance with all transfers.�
Code Status:� Full code
Dispo�(date/plan/equipment needs): Home with family care.� Social history reviewed.�
Functional and Medical Goals:�Modified Independent with ADL�s, ambulation, transfers�
Discharge Destination:�Acute inpatient rehab
Attending Statement:
I saw and examined the patient today. Reviewed care plan with patient, therapy, nursing, and physician hospital aides and assistants teacher. I agree with the above subjective and physical exam, and plan as documented by ARTIE Dhillon with adjustments made as necessary.
�
Summary of recommendations: Patient with gait dysfunction and frequent falls suspected from parkinsonism vs Parkinson Disease would benefit from acute inpatient rehabilitation. Would Appreciate neuro input regarding treatment options. Any
contraindication to trial of Sinemet? prior to discharge
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 Mirapex was started which resulted in severe hypotension, stopped further doses. hemodynamically stable. RPR-ordered. MRI of brain-numerous
small brains lesions, favoring prominent perivascular spaces. UA clean, TSH WNL at 2.03. CT cervical and thoracic spine: No acute fracture or subluxation. OP Amelia scan. OP neurology follow up in 1-2 weeks
HTN: Valsartan decreased dose 80 mg daily start 03/14 with hold parameter-per neurology. Currently on 160mg qd
-Patient with systolic blood pressure in the 180-190 range per discussion with nursing. Would avoid taking blood pressure machines as they can be falsely elevated sometimes for your 50 points higher. Would check blood pressures manually only.
Bradycardia: EKG with sinus niall with sinus arrhythmia with 1st degree A V Block, right bundle branch block. Telemetry.
Bowel: Colace and Senna, PRN bisacodyl.�
Bladder/BPH: Time void, PVRs, PRN straight cath.�Tamsulosin 0.4 mg
�
Thank you for allowing me to care for your patient. Please contact me with any questions or concerns.
[2024-03-13] MEDS: LOW STRENGTH ASPIRIN 81 MG PO (21:49)
[2024-03-13] MEDS: DESYREL 50 MG PO (21:49)
[2024-03-14 01:11] LABS: Transferrin 165 mg/dL (200-360)
[2024-03-14] MEDS: TYLENOL 650 MG PO (02:57)
[2024-03-14 02:59] VITALS: BP 123/84
[2024-03-14 07:00] VITALS: BP 130/80
[2024-03-14 08:00] VITALS: BP 127/78; BP 130/80; BP 134/77; PULSE 58; PULSE 63; PULSE 64
[2024-03-14 08:27] LABS: ALT (SGPT) 65 U/L (0-50); AST (SGOT) 47 U/L (17-59); Albumin 3.4 g/dl (3.5-5.0); Alkaline Phosphatase 71 U/L (38-126); Blood Urea Nitrogen 26 mg/dl (9-20); Carbon Dioxide 27 mmol/L (22-30); Chloride 103 mmol/L (98-107); Estimated Creatinine Clearance 67 ml/min; Glucose 86 mg/dl (70-99); Potassium 4.5 mmol/L (3.5-5.1); Sodium 134 mmol/L (135-145); Total Bilirubin 1.1 mg/dl (0.2-1.3); Total Protein 5.9 g/dl (6.3-8.2); eGFR > 60.00
[2024-03-14] MEDS: VITAMIN B-12 1000 MCG PO (08:33)
[2024-03-14] MEDS: LOVENOX SC (08:33)
[2024-03-14 08:58] LABS: Intact PTH 35.5 pg/ml (13.6-85.8)
--- NOTE | 2024-03-14 09:44 | W.PN.HOSP.TC ---
Today's Communication/Plan
-
see A/P
Assessment / Plan
Assessment / Plan
HPI: 78-year-old with past medical history significant for hypertension, BPH; p/w multiple recent falls. Patient denies any syncopal events. He denies feeling dizzy or lightheaded. He denies vertigo. He denies any changes in his vision.
He reports a history of intermittent ankle swelling and some numbness or tingling in the feet bilaterally. He denies any history of chronic back pain or back surgery. He denies incontinence of the bowel or bladder. He denies any weakness.
Sensation is otherwise intact. He denies any headache. Patient given example of a fall where he was walking down the street and he felt like something pulled him forward. This appears to be gait abnormality.
He reports that his doctors have been adjusting his medications to balance his falls. He does lives at home by himself. Denies etoh.
A/P:
# Frequent falls, suspect 2/2 Parkinson's disease vs Parkinsonism
hemodynamically stable
CT head noted Multiple small low-attenuation lesions in the caudate nuclei, basal ganglia, and left thalamus. Diagnostic possibilities are (1) ischemic lacunar infarcts or (2) dilated perivascular spaces.
CT cervical and thoracic spine: No acute fracture or subluxation.
MRI brain confirmed numerous small brains lesions, favoring prominent perivascular spaces over multiple small old lacunar infarcts
Orthostatic VS from admission acceptable
UA clean, TSH WNL at 2.03
Vit B 12 level noted low at 300, started B12 supplement
RPR was ordered from admission, results is negative
Mirapex was started which resulted in severe hypotension (?orthostatic hypotension), stopped further Mirapex
repeat orthostatic VS 03/14 was again negative for orthostatic hypotension
PT OT recc acute, PMR consulted
# Transaminitis, mild and improving
Abd US unremarkable
Follow LFT
hepatitis panel negative
# Bradycardia
EKG with sinus niall with sinus arrhythmia with 1se degree A V Block, right bundle branch block.
tele
# BPH
Flomax
# Essential HTN
Hold WINDOW COVERING SALES CONSULTANT Valsartan
Observe BP without additional med
DVT PPX - lovenox sq
Code status - Full Code
Dispo: acute rehab per PT OT PMR
DW RN
DW CM
updated daughter on the phone
Anticipated Discharge: 24 - 48 hours
Subjective/Interval History
-
Date of Service: March 14, 2024
Objective Data
-
Labs:
Laboratory Results
03/14/24
06:53
Sodium 134 L
Potassium 4.5
Chloride 103
Carbon Dioxide 27
BUN 26 H
Creatinine 0.9
Glucose 86
Calcium 9.0
Total Bilirubin 1.1
AST 47
ALT 65 H
Alkaline Phosphatase 71
Vital Signs:
Vital Signs
Temp Pulse Resp BP Pulse Ox
36.6 C 58 18 130/80 98
03/14/24 07:00 03/14/24 07:00 03/14/24 07:00 03/14/24 07:00 03/14/24 07:00
I&O
03/13/24 03/14/24 03/15/24
06:59 06:59 06:59
Intake Total 1480 / 1480 840 / 840
Output Total 1175 / 1175
Balance 305 / 305 840 / 840
Review of Systems
-
Musculoskeletal: Reports Other (frequent falls )
Physical Exam
-
General: Well Developed, Well Nourished, No Apparent Distress, Comfortable, Conversant (slow soft speech) and Appears Chronically Ill; Negative Respiratory Distress
HEENT: Normocephalic, Atraumatic, Nose Appears Normal and Ears Appear Normal; Negative Oxygen
Respiratory: Clear to Auscultation and Non Labored Respirations; Negative Accessory Resp Muscle Use
Cardiac: Regular Rhythm and S1/S2
GI: Soft, Nontender, Nondistended and Normal Bowel Sounds
Skin: Warm and Dry
Neuro: Awake, Alert, Oriented and Other (flattened facial expression, slow movement )
Psych: Calm and Intact Judgement/Insight
Data Reviewed
-
CT Scan: Report Reviewed by me
MRI: Report Reviewed by me
Labs: Labs Reviewed by me
[2024-03-14 11:00] VITALS: BP 138/74
--- NOTE | 2024-03-14 12:04 | CM ---
Chart reviewed and recommendation is for acute rehab for patient, message left with admissions at [facility] to review and see if they have accepted patient, patient will need updated PT/OT notes for auth for acute rehab. branch account manager spoke with daughter,
Evelyn and left message for daughter Luna.
Plan; [facility] acute rehab if approved by insurance.
[2024-03-14 15:00] VITALS: BP 111/66
[2024-03-14] MEDS: LOW STRENGTH ASPIRIN 81 MG PO (19:32)
[2024-03-14 22:35] LABS: Homocysteine 11 umol/L (0-15)
[2024-03-14 22:45] VITALS: BP 122/71
[2024-03-15] MEDS: DESYREL 50 MG PO (00:52)
[2024-03-15] MEDS: TYLENOL 650 MG PO ×2 (02:13→21:49)
[2024-03-15 06:13] VITALS: BMI 22.8
[2024-03-15 07:00] VITALS: BP 118/71
[2024-03-15 07:03] LABS: ALT (SGPT) 73 U/L (0-50); AST (SGOT) 49 U/L (17-59); Albumin 3.9 g/dl (3.5-5.0); Alkaline Phosphatase 79 U/L (38-126); Blood Urea Nitrogen 31 mg/dl (9-20); Calcium 9.5 mg/dl (8.4-10.2); Carbon Dioxide 30 mmol/L (22-30); Chloride 101 mmol/L (98-107); Estimated Creatinine Clearance 56 ml/min; Glucose 102 mg/dl (70-99); Potassium 4.4 mmol/L (3.5-5.1); Sodium 138 mmol/L (135-145); Total Bilirubin 0.7 mg/dl (0.2-1.3); Total Protein 6.5 g/dl (6.3-8.2); eGFR > 60.00
[2024-03-15] MEDS: VITAMIN B-12 1000 MCG PO (07:14)
[2024-03-15] MEDS: LOVENOX SC (07:14)
[2024-03-15 10:00] VITALS: BP 75/45
[2024-03-15] MEDS: ProAmatine 2.5 MG PO (10:09)
[2024-03-15] MEDS: NSS 250 IV (10:10)
--- NOTE | 2024-03-15 10:49 | W.PN.HOSP.TC ---
Today's Communication/Plan
-
see A/P
Assessment / Plan
Assessment / Plan
HPI: 78-year-old with past medical history significant for hypertension, BPH; p/w multiple recent falls. Patient denies any syncopal events. He denies feeling dizzy or lightheaded. He denies vertigo. He denies any changes in his vision.
He reports a history of intermittent ankle swelling and some numbness or tingling in the feet bilaterally. He denies any history of chronic back pain or back surgery. He denies incontinence of the bowel or bladder. He denies any weakness.
Sensation is otherwise intact. He denies any headache. Patient given example of a fall where he was walking down the street and he felt like something pulled him forward. This appears to be gait abnormality.
He reports that his doctors have been adjusting his medications to balance his falls. He does lives at home by himself. Denies etoh.
A/P:
# Frequent falls, suspect 2/2 Parkinson's disease vs Parkinsonism
hemodynamically stable
CT head noted Multiple small low-attenuation lesions in the caudate nuclei, basal ganglia, and left thalamus. Diagnostic possibilities are (1) ischemic lacunar infarcts or (2) dilated perivascular spaces.
CT cervical and thoracic spine: No acute fracture or subluxation.
MRI brain confirmed numerous small brains lesions, favoring prominent perivascular spaces over multiple small old lacunar infarcts
Orthostatic VS acceptable
UA clean, TSH WNL at 2.03, RPR was ordered from admission, results is negative
Vit B 12 level noted low at 300, started B12 supplement
Mirapex was started which resulted in severe hypotension (?orthostasis), stopped further Mirapex
PT OT recc acute
# Transaminitis, mild and improving
Abd US unremarkable
Follow LFT
hepatitis panel negative
# Bradycardia
EKG with sinus niall with sinus arrhythmia with 1se degree A V Block, right bundle branch block.
tele
# BPH
Flomax
# Essential HTN
Hold PRINCIPAL TRAINER Valsartan
Observe BP without additional med
# Intermittent hypotension although orthostatic VS has been negative
pt has been receiving PRN IVF boluses
Start empiric midodrine PRN, compression therapy for presumed orthostasis
Holding PRINCIPAL TRAINER valsartan and Flomax
noted UA clean from admission, pt without fever and is non-toxic appearing, no sign of infection.
Can check CRP/ESR to r/o inflammatory/infectious conditions
DVT PPX - lovenox sq
Code status - Full Code
Dispo: acute rehab per PT OT PMR
DW RN
updated daughter in person. Extensive discussion. Answered all questions to the best of my . bility,
total time spent 51 min
Anticipated Discharge: 24 - 48 hours
Subjective/Interval History
-
Date of Service: March 15, 2024
Objective Data
-
Labs:
Laboratory Results
03/15/24
06:07
Sodium 138
Potassium 4.4
Chloride 101
Carbon Dioxide 30
BUN 31 H
Creatinine 1.1
Glucose 102 H
Calcium 9.5
Total Bilirubin 0.7
AST 49
ALT 73 H
Alkaline Phosphatase 79
Vital Signs:
Vital Signs
Temp Pulse Resp BP Pulse Ox
36.5 C 96 18 75/45 98
03/15/24 07:00 03/15/24 10:09 03/15/24 07:00 03/15/24 10:09 03/15/24 10:00
I&O
03/14/24 03/15/24 03/16/24
06:59 06:59 06:59
Intake Total 840 / 840 960 / 960
Balance 840 / 840 960 / 960
Review of Systems
-
Musculoskeletal: Reports Other (frequent falls )
Physical Exam
-
General: Well Developed, Well Nourished, No Apparent Distress, Comfortable, Conversant (slow soft speech) and Appears Chronically Ill; Negative Respiratory Distress
HEENT: Normocephalic, Atraumatic, Nose Appears Normal and Ears Appear Normal; Negative Oxygen
Respiratory: Clear to Auscultation and Non Labored Respirations; Negative Accessory Resp Muscle Use
Cardiac: Regular Rhythm and S1/S2
GI: Soft, Nontender, Nondistended and Normal Bowel Sounds
Skin: Warm and Dry
Neuro: Awake, Alert, Oriented and Other (flattened facial expression, slow movement )
Psych: Calm and Intact Judgement/Insight
Data Reviewed
-
CT Scan: Report Reviewed by me
MRI: Report Reviewed by me
Labs: Labs Reviewed by me
[2024-03-15 11:15] VITALS: BP 110/75
[2024-03-15 12:30] VITALS: BP 115/85
[2024-03-15 12:50] LABS: Erythrocyte Sed Rate 16 mm/hour (0-20)
[2024-03-15 15:00] VITALS: BP 137/75
[2024-03-15] MEDS: LOW STRENGTH ASPIRIN 81 MG PO (21:42)
[2024-03-15 23:00] VITALS: BP 145/78
[2024-03-16 00:51] LABS: Methylmalonic Acid 0.21 umol/L (0.00-0.40)
[2024-03-16] MEDS: DESYREL 50 MG PO ×2 (01:57→23:36)
[2024-03-16] MEDS: TYLENOL 650 MG PO ×3 (04:43→20:58)
[2024-03-16 06:15] VITALS: BMI 22.9
[2024-03-16 07:20] VITALS: BP 129/71
[2024-03-16] MEDS: VITAMIN B-12 1000 MCG PO (08:17)
[2024-03-16 08:40] LABS: ALT (SGPT) 64 U/L (0-50); AST (SGOT) 38 U/L (17-59); Albumin 3.5 g/dl (3.5-5.0); Alkaline Phosphatase 67 U/L (38-126); Blood Urea Nitrogen 30 mg/dl (9-20); Calcium 9.1 mg/dl (8.4-10.2); Carbon Dioxide 32 mmol/L (22-30); Chloride 102 mmol/L (98-107); Estimated Creatinine Clearance 61 ml/min; Glucose 88 mg/dl (70-99); Potassium 4.7 mmol/L (3.5-5.1); Sodium 138 mmol/L (135-145); Total Bilirubin 0.7 mg/dl (0.2-1.3); Total Protein 6.1 g/dl (6.3-8.2); eGFR > 60.00
--- NOTE | 2024-03-16 09:50 | W.PN.HOSP.TC ---
Today's Communication/Plan
-
Discharge to [facility] when insurance authorization has been obtained
Assessment / Plan
Assessment / Plan
HPI: 78-year-old with past medical history significant for hypertension, BPH; p/w multiple recent falls. Patient denies any syncopal events. He denies feeling dizzy or lightheaded. He denies vertigo. He denies any changes in his vision.
He reports a history of intermittent ankle swelling and some numbness or tingling in the feet bilaterally. He denies any history of chronic back pain or back surgery. He denies incontinence of the bowel or bladder. He denies any weakness.
Sensation is otherwise intact. He denies any headache. Patient given example of a fall where he was walking down the street and he felt like something pulled him forward. This appears to be gait abnormality.
He reports that his doctors have been adjusting his medications to balance his falls. He does lives at home by himself. Denies etoh.
A/P:
# Frequent falls, suspect 2/2 Parkinson's disease vs Parkinsonism
Hemodynamically stable
CT head noted Multiple small low-attenuation lesions in the caudate nuclei, basal ganglia, and left thalamus. Diagnostic possibilities are (1) ischemic lacunar infarcts or (2) dilated perivascular spaces.
CT cervical and thoracic spine: No acute fracture or subluxation.
MRI brain confirmed numerous small brains lesions, favoring prominent perivascular spaces over multiple small old lacunar infarcts
Orthostatic VS acceptable
UA clean, TSH WNL at 2.03, RPR was ordered from admission, results is negative
Vit B 12 level noted low at 300, started B12 supplement
Mirapex was started which resulted in severe hypotension (?orthostasis), stopped further Mirapex
PT OT recc acute - Discharge to [facility] when insurance authorization has been obtained
Check hemoglobin A1c for completeness sake
# Essential HTN
Hold AUTOCUTTER Valsartan
Observe BP without additional med
# Intermittent hypotension although orthostatic VS has been negative
Holding AUTOCUTTER valsartan and Flomax
Noted UA clean from admission, pt without fever and is non-toxic appearing, no sign of infection.
# Transaminitis, mild and improving
Abd US unremarkable
Follow LFT
hepatitis panel negative
# Bradycardia
EKG with sinus niall with sinus arrhythmia with 1se degree A V Block, right bundle branch block.
tele
# BPH
Hold Flomax
DVT PPX - lovenox sq
Code status - Full Code
Dispo: acute rehab per PT OT PMR
Updated daughter on phone 03/16
Total time spent to see the patient on the floor, examine the patient, review data and lab results, discuss treatment plan with patient, nursing staff around 45 minutes.
Physical Exam
General: No acute distress
HEENT: Normocephalic, Atraumatic, EOMI, MMM
Respiratory: Clear to Auscultation bilaterally
Cardiac: Normal S1/S2, Regular Rate and Rhythm
GI: Soft, Nontender, Nondistended, Normal Bowel Sounds
Extremities: No Clubbing, Cyanosis, or Edema
Neuro: Nonfocal/Grossly Intact
Psych: Calm, Cooperative
Derm: No Visible lesions
Anticipated Discharge: Within 24 hours
Subjective/Interval History
-
Date of Service: March 16, 2024
Complains of his toes feeling twisted. No lightheadedness or dizziness with standing. No fever, no vomiting. No chest pain, no shortness of breath.
Objective Data
-
Labs:
Laboratory Results
03/16/24
07:35
Sodium 138
Potassium 4.7
Chloride 102
Carbon Dioxide 32 H
BUN 30 H
Creatinine 1.0
Glucose 88
Calcium 9.1
Total Bilirubin 0.7
AST 38
ALT 64 H
Alkaline Phosphatase 67
Vital Signs:
Vital Signs
Temp Pulse Resp BP Pulse Ox
97.5 F 51 16 129/71 98
03/16/24 07:20 03/16/24 07:20 03/16/24 07:20 03/16/24 07:20 03/16/24 07:20
I&O
03/15/24 03/16/24 03/17/24
06:59 06:59 06:59
Intake Total 960 / 960 700 / 700
Balance 960 / 960 700 / 700
[2024-03-16 09:57] VITALS: BP 96/62
[2024-03-16] MEDS: ProAmatine 2.5 MG PO (10:00)
[2024-03-16 12:06] VITALS: BP 127/78; O2SAT 98
[2024-03-16 12:53] VITALS: BP 127/78; BP 146/79
--- NOTE | 2024-03-16 14:19 | CM ---
Chart reviewed. Pt is currently being recommended for acute rehab. [facility] has already accepted pt.
Arvind auth initiated. Clinicals faxed to [phone], awaiting determination
[facility] updated
Hospitalist updated on floor
[facility]-
Report: [phone]

Plan: [facility] pending auth approval
[2024-03-16 15:29] VITALS: BP 104/57
[2024-03-16] MEDS: LOVENOX 40 MG SC (17:04)
[2024-03-16] MEDS: LOW STRENGTH ASPIRIN 81 MG PO (20:59)
[2024-03-16 23:00] VITALS: BP 109/60
[2024-03-16 23:20] LABS: Vitamin B1, Whole Blood 95 nmol/L (70-180)
[2024-03-17] MEDS: TYLENOL 650 MG PO ×2 (01:32→06:13)
[2024-03-17 06:00] VITALS: BMI 22.7
[2024-03-17 07:55] VITALS: BP 110/65
[2024-03-17] MEDS: VITAMIN B-12 1000 MCG PO (08:43)
--- NOTE | 2024-03-17 09:03 | W.PN.HOSP.TC ---
Today's Communication/Plan
-
Discharge to acute rehab when insurance authorization has been obtained
Assessment / Plan
Assessment / Plan
HPI: 78-year-old with past medical history significant for hypertension, BPH; p/w multiple recent falls. Patient denies any syncopal events. He denies feeling dizzy or lightheaded. He denies vertigo. He denies any changes in his vision.
He reports a history of intermittent ankle swelling and some numbness or tingling in the feet bilaterally. He denies any history of chronic back pain or back surgery. He denies incontinence of the bowel or bladder. He denies any weakness.
Sensation is otherwise intact. He denies any headache. Patient given example of a fall where he was walking down the street and he felt like something pulled him forward. This appears to be gait abnormality.
He reports that his doctors have been adjusting his medications to balance his falls. He does lives at home by himself. Denies etoh.
A/P:
# Frequent falls, suspect 2/2 Parkinson's disease vs Parkinsonism
Hemodynamically stable
CT head noted Multiple small low-attenuation lesions in the caudate nuclei, basal ganglia, and left thalamus. Diagnostic possibilities are (1) ischemic lacunar infarcts or (2) dilated perivascular spaces.
CT cervical and thoracic spine: No acute fracture or subluxation.
MRI brain confirmed numerous small brains lesions, favoring prominent perivascular spaces over multiple small old lacunar infarcts
Orthostatic VS acceptable
UA clean, TSH WNL at 2.03, RPR was ordered from admission, results is negative
Vit B 12 level noted low at 300, started B12 supplement
Mirapex was started which resulted in severe hypotension (?orthostasis), stopped further Mirapex
PT OT recc acute - Discharge to [facility] when insurance authorization has been obtained
# Essential HTN
Hold FUNDRAISING SPECIALIST Valsartan, recommend permanently discontinuing
Observe BP without additional med
# Intermittent hypotension although orthostatic VS has been negative
Holding FUNDRAISING SPECIALIST valsartan and Flomax, recommend permanently discontinuing
Noted UA clean from admission, pt without fever and is non-toxic appearing, no sign of infection.
#Prediabetes
Hemoglobin A1c 5.8
Recommend dietary modification, inform daughter
# Transaminitis, mild and improving
Abd US unremarkable
Follow LFT
hepatitis panel negative
# Bradycardia
EKG with sinus niall with sinus arrhythmia with 1se degree A V Block, right bundle branch block.
tele
# BPH
Hold Flomax
DVT PPX - lovenox sq
Code status - Full Code
Dispo: acute rehab per PT OT PMR
Updated daughter on phone 03/17
Total time spent to see the patient on the floor, examine the patient, review data and lab results, discuss treatment plan with patient, nursing staff around 40 minutes.
Physical Exam
General: No acute distress
HEENT: Normocephalic, Atraumatic, EOMI, MMM
Respiratory: Clear to Auscultation bilaterally
Cardiac: Normal S1/S2, Regular Rate and Rhythm
GI: Soft, Nontender, Nondistended, Normal Bowel Sounds
Extremities: No Clubbing, Cyanosis, or Edema
Neuro: Nonfocal/Grossly Intact
Psych: Calm, Cooperative
Derm: No Visible lesions
Anticipated Discharge: Today
Subjective/Interval History
-
Date of Service: March 17, 2024
Patient had some transient dizziness, now resolved. No fever, no vomiting. No chest pain, no shortness of breath. He is frustrated waiting for insurance authorization for rehab placement.
Objective Data
-
Vital Signs:
Vital Signs
Temp Pulse Resp BP Pulse Ox
97.4 F 51 18 110/65 98
03/17/24 07:55 03/17/24 07:55 03/17/24 07:55 03/17/24 07:55 03/17/24 07:55
I&O
03/16/24 03/17/24 03/18/24
06:59 06:59 06:59
Intake Total 700 / 700 780 / 780
Balance 700 / 700 780 / 780
[2024-03-17 09:58] VITALS: BP 112/63
[2024-03-17 10:30] LABS: Glycohemoglobin (HgbA1c) 5.8 % (4.0-5.6)
[2024-03-17 13:14] VITALS: BMI 22.7
[2024-03-17 15:39] VITALS: BP 111/60
[2024-03-17] MEDS: SINEMET 25-100 1 TABLET PO ×2 (15:43→22:54)
[2024-03-17] MEDS: LOVENOX 40 MG SC (17:23)
[2024-03-17] MEDS: ZOFRAN 4 MG IV (21:49)
[2024-03-17] MEDS: LOW STRENGTH ASPIRIN 81 MG PO (22:54)
[2024-03-17 23:30] VITALS: BP 135/81
[2024-03-18] MEDS: TYLENOL 650 MG PO (02:25)
[2024-03-18 06:13] VITALS: BMI 22.6
[2024-03-18 07:30] VITALS: BP 124/61
--- NOTE | 2024-03-18 08:41 | CM ---
Addendum entered by Maria M Souza 03/18/24 13:42:
Per Alana/Arvind, requesting updated therapy notes faxed to [phone]. Clinicals sent
OT to see for updated notes
Auth cont to be reviewed for determination
Original Note:
CM followed up w/ Arvind re auth status for acute rehab
Spoke w/ [facility]/Arvind rep who confirmed clinicals were received and were reviewed yesterday, however, determination is still pending at this time
[facility] updated, hospitalist updated
CM will cont to follow up
[facility]-
Report: [phone]

Plan: [facility]; pending auth
--- NOTE | 2024-03-18 09:05 | W.PN.HOSP.TC ---
Today's Communication/Plan
-
Discharge to acute rehab when authorization has been obtained
Assessment / Plan
Assessment / Plan
HPI: 78-year-old with past medical history significant for hypertension, BPH; p/w multiple recent falls. Patient denies any syncopal events. He denies feeling dizzy or lightheaded. He denies vertigo. He denies any changes in his vision.
He reports a history of intermittent ankle swelling and some numbness or tingling in the feet bilaterally. He denies any history of chronic back pain or back surgery. He denies incontinence of the bowel or bladder. He denies any weakness.
Sensation is otherwise intact. He denies any headache. Patient given example of a fall where he was walking down the street and he felt like something pulled him forward. This appears to be gait abnormality.
He reports that his doctors have been adjusting his medications to balance his falls. He does lives at home by himself. Denies etoh.
A/P:
# Frequent falls, suspect 2/2 Parkinson's disease vs Parkinsonism
Hemodynamically stable
CT head noted Multiple small low-attenuation lesions in the caudate nuclei, basal ganglia, and left thalamus. Diagnostic possibilities are (1) ischemic lacunar infarcts or (2) dilated perivascular spaces.
CT cervical and thoracic spine: No acute fracture or subluxation.
MRI brain confirmed numerous small brains lesions, favoring prominent perivascular spaces over multiple small old lacunar infarcts
Orthostatic VS acceptable
UA clean, TSH WNL at 2.03, RPR was ordered from admission, results is negative
Vit B 12 level noted low at 300, started B12 supplement
Mirapex was started which resulted in severe hypotension (?orthostasis), stopped further Mirapex
Neurology started Sinemet
PT OT recc acute - Discharge to [facility] when insurance authorization has been obtained
# Essential HTN
Hold SWEET PICKLED FRUIT MAKER Valsartan, recommend permanently discontinuing
Observe BP without additional med
# Intermittent hypotension although orthostatic VS has been negative
Holding SWE[employer] PICKLED FRUIT MAKER valsartan and Flomax, recommend permanently discontinuing
Noted UA clean from admission, pt without fever and is non-toxic appearing, no sign of infection.
#Prediabetes
Hemoglobin A1c 5.8
Recommend dietary modification, informed daughter
# Transaminitis, mild and improving
Abd US unremarkable
Follow LFT
hepatitis panel negative
# Bradycardia
EKG with sinus niall with sinus arrhythmia with 1se degree A V Block, right bundle branch block.
tele
# BPH
Hold Flomax
DVT PPX - lovenox sq
Code status - Full Code
Dispo: acute rehab per PT OT PMR
Updated daughter on phone 03/17
Total time spent to see the patient on the floor, examine the patient, review data and lab results, discuss treatment plan with patient, nursing staff around 38 minutes.
Physical Exam
General: No acute distress
HEENT: Normocephalic, Atraumatic, EOMI, MMM
Respiratory: Clear to Auscultation bilaterally
Cardiac: Normal S1/S2, Regular Rate and Rhythm
GI: Soft, Nontender, Nondistended, Normal Bowel Sounds
Extremities: No Clubbing, Cyanosis, or Edema
Neuro: Nonfocal/Grossly Intact
Psych: Calm, Cooperative
Derm: No Visible lesions
Anticipated Discharge: Today
Subjective/Interval History
-
Date of Service: March 18, 2024
Patient had some nausea last night, resolved. He also had some reflux this morning, resolved with Pepcid. No fever, no vomiting.
Objective Data
-
Vital Signs:
Vital Signs
Temp Pulse Resp BP Pulse Ox
98.3 F 71 18 124/61 97
03/18/24 07:30 03/18/24 07:30 03/18/24 07:30 03/18/24 07:30 03/18/24 07:30
I&O
03/17/24 03/18/24 03/19/24
06:59 06:59 06:59
Intake Total 780 / 780 1140 / 1140
Balance 780 / 780 1140 / 1140
[2024-03-18] MEDS: PEPCID 20 MG PO (09:21)
[2024-03-18] MEDS: SINEMET 25-100 1 TABLET PO ×3 (09:21→21:30)
[2024-03-18] MEDS: VITAMIN B-12 1000 MCG PO (09:22)
[2024-03-18 15:00] VITALS: BP 127/69
[2024-03-18] MEDS: LOVENOX SC ×2 (16:12→18:17)
[2024-03-18] MEDS: LOW STRENGTH ASPIRIN 81 MG PO (20:07)
[2024-03-18 23:45] VITALS: BP 152/75
[2024-03-19 07:00] VITALS: BP 128/69
--- NOTE | 2024-03-19 08:39 | W.PN.HOSP.TC ---
Today's Communication/Plan
-
Discharge home with home care today
Assessment / Plan
Assessment / Plan
HPI: 78-year-old with past medical history significant for hypertension, BPH; p/w multiple recent falls. Patient denies any syncopal events. He denies feeling dizzy or lightheaded. He denies vertigo. He denies any changes in his vision.
He reports a history of intermittent ankle swelling and some numbness or tingling in the feet bilaterally. He denies any history of chronic back pain or back surgery. He denies incontinence of the bowel or bladder. He denies any weakness.
Sensation is otherwise intact. He denies any headache. Patient given example of a fall where he was walking down the street and he felt like something pulled him forward. This appears to be gait abnormality.
He reports that his doctors have been adjusting his medications to balance his falls. He does lives at home by himself. Denies etoh.
A/P:
# Frequent falls, suspect 2/2 Parkinson's disease vs Parkinsonism
Hemodynamically stable
CT head noted Multiple small low-attenuation lesions in the caudate nuclei, basal ganglia, and left thalamus. Diagnostic possibilities are (1) ischemic lacunar infarcts or (2) dilated perivascular spaces.
CT cervical and thoracic spine: No acute fracture or subluxation.
MRI brain confirmed numerous small brains lesions, favoring prominent perivascular spaces over multiple small old lacunar infarcts
Orthostatic VS acceptable
UA clean, TSH WNL at 2.03, RPR was ordered from admission, results is negative
Vit B 12 level noted low at 300, started B12 supplement
Mirapex was started which resulted in severe hypotension (?orthostasis), stopped further Mirapex
Neurology started Sinemet
[facility] - [facility] denied [facility] rehab
Discharge home with home care today, set up for home and outpt PT
# Essential HTN
Hold [employer] Valsartan, recommend permanently discontinuing
Observe BP without additional med
# Intermittent hypotension although orthostatic VS has been negative
Holding [employer] valsartan and Flomax, recommend permanently discontinuing
Noted UA clean from admission, pt without fever and is non-toxic appearing, no sign of infection.
#Prediabetes
Hemoglobin A1c 5.8
Recommend dietary modification, informed daughter
# Transaminitis, mild and improving
Abd US unremarkable
Follow LFT
hepatitis panel negative
# Bradycardia
EKG with sinus niall with sinus arrhythmia with 1se degree A V Block, right bundle branch block.
tele
# BPH
Hold Flomax - recommend permanently discontinuing due to orthostasis
DVT PPX - lovenox sq
Code status - Full Code
Updated daughter on phone 03/17
Anticipated Discharge: Today
Subjective/Interval History
-
Date of Service: March 19, 2024
No acute changes. Patient is frustrated that his insurance denied acute rehab.
Objective Data
-
Vital Signs:
Vital Signs
Temp Pulse Resp BP Pulse Ox
98.2 F 63 16 128/69 97
03/19/24 07:00 03/19/24 07:00 03/19/24 07:00 03/19/24 07:00 03/19/24 07:00
I&O
03/18/24 03/19/24 03/20/24
06:59 06:59 06:59
Intake Total 1140 / 1140 1080 / 1080
Balance 1140 / 1140 1080 / 1080
[2024-03-19] MEDS: SINEMET 25-100 1 TABLET PO (08:40)
[2024-03-19] MEDS: PEPCID 20 MG PO (08:40)
[2024-03-19] MEDS: VITAMIN B-12 1000 MCG PO (08:40)
--- NOTE | 2024-03-19 08:55 | W.DCSUMMARY ---
Discharge Summary
Discharge Data
Date of Admission: 03/12/24
Date of Discharge: 03/19/24
-
Pending Results: No
Hospital Course
Discharge diagnosis:
Frequent falls, suspect secondary to Parkinson's disease vs Parkinsonism
History of hypertension, now normotensive off of medications
Intermittent hypotension
Prediabetes
Transaminitis
Bradycardia
Benign prostatic hypertrophy
Consults: Neurology
Brain MRI:
Numerous small foci of CSF signal intensity as described, corresponding to findings seen on CT scan. Differential considerations of multiple small old lacunar infarcts versus prominent perivascular spaces. I would slightly favor prominent
perivascular spaces.
Mild diffuse atrophy in this 78-year-old patient.
Mild to moderate T2 and FLAIR white matter hyperintensities, commonly seen with aging and usually attributed to small vessel ischemic disease.
Hospital course:
78-year-old male with a past medical history of gastroesophageal reflux disease, hypertension, and osteoarthritis was admitted for frequent falls. Patient was seen in conjunction with neurology. Patient has had bradykinesia, micrographia, and
progressive imbalance. Neurology suspects hemiparkinsonism. Neurology recommended Mirapex. Patient was started on Mirapex, however, this resulted in severe hypotension. Mirapex was discontinued. Patient was on valsartan prior to arrival. This
was discontinued. Patient remained normotensive off of his valsartan.
Patient's B12 level was low at 300, he was started on B12 supplements. He was negative for syphilis, hepatitis. TSH was normal.
Patient was started on Sinemet by neurology.
Patient was seen in conjunction with PT, who recommended acute rehab. His insurance denied acute rehab. He will be discharged home with home care. He needs to follow-up with his primary care doctor in 1 week, and neurology in 3-4 weeks.
Disposition: Home with home care
Discharge planning: Required 42 minutes
Discharge Plan
-
Patient Disposition: Home with Home Care
Discharge Diagnosis/Procedures: Ambulatory dysfunction, frequent falls, Parkinsonism, low vitamin B12 levels, prediabetes, history of hypertension now with soft blood pressure
Condition: Fair
Diet: Diabetic, Carb Controlled
Activity: As tolerated
Activity Restrictions/Additional Instructions:
Your blood pressure in the hospital was normal without valsartan.
Recommend permanently stopping valsartan.
Flomax/tamsulosin can also cause low pressure with standing.
Recommend stopping as well.
Please follow-up with your primary care doctor in 1 week.
Also follow-up with neurology in the office in 3-4 weeks.
Referrals:
Marquita Krause CRNP [Specified Professional Personl] - in three to four weeks
Pb Thorne DO [Family Provider] - in one week
Prescriptions:
New
famotidine 20 mg Tablet
20 mg PO DAILY Qty: 30 0RF
carbidopa-levodopa 25-100 mg Tablet
1 tab PO TID Qty: 90 0RF
cyanocobalamin (vitamin B-12) 1,000 mcg tablet
1,000 mcg PO DAILY Qty: 30 0RF
Continued
ketoconazole 2 % Shampoo
1 applic TOPICAL DAILY
trazodone 50 mg Tablet
50 mg PO HSPRN PRN (Reason: sleep)
acetaminophen [Tylenol Arthritis Pain] 650 mg Tablet Extended Release
650 mg PO Q8HPRN PRN (Reason: mild pain)
aspirin 81 mg Tablet,Chewable
81 mg PO HS
Discontinued
tamsulosin 0.4 mg Capsule
0.4 mg PO HS
valsartan 160 mg Tablet
160 mg PO DAILY
Discharge Orders:
Discharge Patient (As Directed); Ordered 03/17/24
Ordered By: Denzel Magdaleno
Discharge Date and Time
Discharge Date/Time: 03/19/24 12:38
Print Language: SYRIAC
--- NOTE | 2024-03-19 09:09 | CM ---
Arvind ray determination returned early evening yesterday w/ a denial for acute rehab.
Informed Enmanuel/Sha of denial. Per Enmanuel, spoke w/ pt's daughter who stated pt is irate and doesn't want to remain in the hospital any longer.
Spoke w/ pt's daughter, Luna, informed of auth denial and shared pt would be approved for SNF instead. Per Luna, pt wants to go home and will not wait additional days for another rehab referral process. Luna prefer home PT w/ assistance w/
getting pt a walker and raised toilet seat for the home. CM made Luna aware that home PT will not be consistent and would only see pt in the home 2-3x a week as opposed to a rehab where pt would get therapy every day for a few hours. Luna
understood this and continued to want to move forward w/ pt being d/c home w/ home care.
Luna agreeable to [facility], referral completed in [facility], liaison made aware.
Per Luna, her sister will transport pt home around 11 am, CM informed d/c order is already in.
Per PT, pt is able to get walker at d/c w/ co-pay of $8-9 that will be billed per insurance. Daughter made aware raised toilet seat can be purchased at a [employer] or [employer] for a reasonable cost
Plan: Home w/ [facility] and walker provided by PT
--- NOTE | 2024-03-19 09:36 | VNURNOTE ---
Home Health Liaison met with patient and daughter Evelyn on speakerphone to discuss [facility] nurse/therapy, visits, schedule and homebound status. Both are agreeable and understand that visits at home will be 2-3 x per week to assess and teach medical
management. Liaison was advised by daughter that staff should call other daughter Luna to set up visits. Noted on referral. [facility] brochure provided with contact information. Provided list of caregivers/homemakers to go home w/patient per
Evelyn request. [employer] consult added to referral for penitentiary planning and additional resources. Both daughter and patient very disappointed and upset that patient is going home and not accepted by [facility]. Patient and daughter aware that [facility] will
contact them for start of care in 1-2 days after discharge from . PT came to room and fitted pt for RW to take home. [facility] referral updated in [facility].
== END 2024-03-19 12:38 | disposition home health service (06) | DRG 56 ==
LOC: 4 WEST ACU 11:42
PROVIDERS: Internal Medicine; Registered Nurse; ADMITTING PHYSICIAN Internal Medicine; ATTENDING PHYSICIAN Family Medicine; CONSULT PHYSICIAN Physical Medicine & Rehabilitation; CONSULT PHYSICIAN Psychiatry & Neurology Neurology; EMERGENCY PHYSICIAN Emergency Medicine; FAMILY PHYSICIAN Internal Medicine
DX: G20.C Parkinsonism, unspecified (principal); I63.9 Cerebral infarction, unspecified; I44.0 Atrioventricular block, first degree; N40.0 Benign prostatic hyperplasia without lower urinary tract symptoms; I10 Essential (primary) hypertension; R29.6 Repeated falls
CPT/HCPCS: 70450; 70551; 72125; 72128; 76700; 80053; 81003; 82607; 82728; 82746; 83036; 83090; 83540; 83550; 83690; 83735; 83921; 83970; 84425; 84443; 84466; 85025; 85652; 86140; 86706; 86708; 86780; 86803; 87340; 92507; 92523; 92610; 93005; 97112; 97116; 97163; 97167; 97530; 97535; 99285